=== PATIENT | male | born 1935 | race Caucasian/White ===

== ENCOUNTER 2020-05-18 17:26 | Emergency (ER) | payer OTHER, MEDICAID, SELFPAY ==
[~2020-05-18] VITALS: Ht 170.2 cm; Wt 72.6 kg
[2020-05-18 17:26] VITALS: BP_SYST 158
[2020-05-18 18:41] LABS: BASOPHILS % (AUTO) 0.6 % (0.0-2.0); EOSINOPHILS # (AUTO) 0.2 K/uL (0.0-0.4); EOSINOPHILS % (AUTO) 3.7 % (0.0-4.0); HEMATOCRIT 36.5 % (36-54); HEMOGLOBIN 11.6 g/dL (14.0-18.0); LYMPHOCYTES # (AUTO) 1.2 K/uL (1.0-5.5); LYMPHOCYTES % (AUTO) 24.5 % (20.5-51.5); MEAN CORPUSCULAR HEMOGLOBIN 27 pg (27-31); MEAN CORPUSCULAR HGB CONC 32 % (32-36); MEAN CORPUSCULAR VOLUME 84 fL (79.0-98.0); MONOCYTES # (AUTO) 0.6 K/uL (0.0-1.0); NEUTROPHILS # (AUTO) 2.9 K/uL (1.8-7.7); NEUTROPHILS % (AUTO) 58.2 % (40.0-70.0); PLATELET COUNT (AUTO) 120 K/uL (130-430); RED BLOOD CELL COUNT(AUTO) 4.33 MIL/uL (4.2-6.2); WHITE BLOOD COUNT (AUTO) 4.9 K/uL (4.8-10.8)
[2020-05-18 18:52] LABS: ANION GAP 4 (5-15); CALCIUM 8.8 mg/dL (8.4-11.0); CHLORIDE 100 mmol/L (98-107); CREATININE 1.35 mg/dL (0.55-1.30); GLUCOSE 160 mg/dL (70-99); POTASSIUM 4.4 mmol/L (3.5-5.1); SODIUM SERUM 137 mmol/L (136-145); UREA NITROGEN, BLOOD 28 mg/dL (8-21)
[2020-05-18 19:10] LABS: ALANINE AMINOTRANSFERASE 38 U/L (12-78); ALBUMIN 3.3 g/dL (3.4-4.8); ASPARTATE AMINOTRANSFERASE 34 U/L (10-37); TOTAL BILIRUBIN 0.5 mg/dL (0.0-1.0)
[2020-05-18 19:18] LABS: ALCOHOL, BLOOD < 3 mg/dL (<10)
[2020-05-18 19:33] LABS: BILIRUBIN,URINE NEGATIVE (NEGATIVE); BLOOD, URINE NEGATIVE (NEGATIVE); CLARITY/URINE CLEAR (CLEAR); COLOR,URINE YELLOW (YELLOW); GLUCOSE,URINE NEGATIVE (NEGATIVE); KETONES,URINE NEGATIVE (NEGATIVE); LEUKOCYTE ESTERASE ,URINE NEGATIVE (NEGATIVE); NITRITE, URINE NEGATIVE (NEGATIVE); PROTEIN URINE NEGATIVE (NEGATIVE)
[2020-05-18 20:05] LABS: ACETAMINOPHEN < 1 ug/mL (1-30); CHOLESTEROL 101 mg/dL (<200); HDL CHOLESTEROL 29 mg/dL (>45); LDL CHOLESTEROL 66 mg/dL (<100); TRIGLYCERIDES 61 mg/dL (30-150)
[2020-05-18 20:14] LABS: BARBITURATE, URINE NEGATIVE (NEG <=200); BENZODIAZEPINE, URINE POSITIVE (NEG <=150); CANNABINOID, URINE NEGATIVE (NEG <=50); COCAINE, URINE NEGATIVE (NEG <=150); METHAMPHETAMINES SCREEN,URINE NEGATIVE (NEG <=500); OPIATE, URINE NEGATIVE (NEG <=100); PHENCYCLIDINE SCREEN,URINE NEGATIVE (NEG <=25); URINE AMPHETAMINE NEGATIVE (NEG <=500); URINE METHADONE NEGATIVE (NEG <=200); URINE OXYCODONE SCREEN NEGATIVE (NEG <=100); URINE PROPOXYPHENE SCREEN NEGATIVE (NEG <=300)
[2020-05-18 20:15] LABS: UR TRICYCLIC ANTIDEPRESSANTS POSITIVE (NEG <=300)
[2020-05-18 20:45] VITALS: BP_SYST 136
== END 2020-05-18 20:45 ==
LOC: SED 17:26
DX: R45.6 Violent behavior (principal); Z88.8 Allergy status to other drugs, medicaments and biological substances; Z20.828 Contact with and (suspected) exposure to other viral communicable diseases
CPT/HCPCS: 36415; 80053; 80061; 80307; 81000; 81003; 83036; 85025; 87081; 87426; 99285; G0480; G0481; G0482

== ENCOUNTER 2020-06-01 10:28 | Inpatient (IN) | payer OTHER, MEDICAID, SELFPAY ==
[~2020-06-01] VITALS: Ht 162.6 cm; Wt 65.8 kg
--- NOTE | 2020-06-01 10:30 | NUR ---
Patient to ER bed 5 to gown for evaluation. Side rails up. Report given to SUSAN COLLINS.
[2020-06-01 10:31] VITALS: BP_SYST 101
--- NOTE | 2020-06-01 10:31 | NUR ---
Patient brought in by BLS in the ED c/o generalized weakness and decreased PO intake. Denied any chest pain or shortness of breath. Denied any fevers, chills, nausea or vomiting. Patient is awake and oriented x1 and respirations even and unlabored. VSS, pain level 0/10. Informed of the approximate wait time. Instructed to notify ED staff for any changes in condition or worsening of symptoms while waiting to be seen by an ED provider.
--- NOTE | 2020-06-01 10:33 | NUR ---
ER Dr. Coleman at bedside examining patient.
[2020-06-01] MEDS ORDERED: NACL 0.9% 1,000 ML IV ONE (10:45)
--- NOTE | 2020-06-01 10:55 | NUR ---
# 18 gauge angiocath placed to RAC. Use of asceptic technique. Opsite placed over site. Blood return noted. Blood for lab drawn from site. Flushed with 10 cc of normal saline. No evidence of infiltration noted. Patient tolerated well.
--- NOTE | 2020-06-01 11:01 | NUR ---
EKG GIVEN TO
[2020-06-01 11:10] LABS: BASOPHILS % (AUTO) 0.2 % (0.0-2.0); EOSINOPHILS % (AUTO) 0.2 % (0.0-4.0); HEMATOCRIT 45.2 % (36-54); HEMOGLOBIN 14.8 g/dL (14.0-18.0); LYMPHOCYTES # (AUTO) 1.1 K/uL (1.0-5.5); LYMPHOCYTES % (AUTO) 15.5 % (20.5-51.5); MEAN CORPUSCULAR HEMOGLOBIN 28 pg (27-31); MEAN CORPUSCULAR HGB CONC 33 % (32-36); MEAN CORPUSCULAR VOLUME 85 fL (79.0-98.0); MONOCYTES # (AUTO) 0.9 K/uL (0.0-1.0); MONOCYTES % (AUTO) 13.3 % (1.7-9.3); NEUTROPHILS % (AUTO) 70.8 % (40.0-70.0); PLATELET COUNT (AUTO) 118 K/uL (130-430); RED BLOOD CELL COUNT(AUTO) 5.31 MIL/uL (4.2-6.2); RED CELL DISTRIBUTION WIDTH 20.2 % (9.0-15.0); WHITE BLOOD COUNT (AUTO) 7.1 K/uL (4.8-10.8)
[2020-06-01 11:23] LABS: ANION GAP 4 (5-15); CALCIUM 9.2 mg/dL (8.4-11.0); CHLORIDE 103 mmol/L (98-107); CREATININE 1.27 mg/dL (0.55-1.30); GLUCOSE 189 mg/dL (70-99); POTASSIUM 4.3 mmol/L (3.5-5.1); SODIUM SERUM 143 mmol/L (136-145); UREA NITROGEN, BLOOD 31 mg/dL (8-21)
[2020-06-01 11:27] LABS: BILIRUBIN,URINE 1+ (NEGATIVE); BLOOD, URINE 1+ (NEGATIVE); CLARITY/URINE CLEAR (CLEAR); COLOR,URINE YELLOW (YELLOW); GLUCOSE,URINE NEGATIVE (NEGATIVE); KETONES,URINE 1+ (NEGATIVE); LEUKOCYTE ESTERASE ,URINE NEGATIVE (NEGATIVE); NITRITE, URINE NEGATIVE (NEGATIVE); PROTEIN URINE TRACE (NEGATIVE)
[2020-06-01] MEDS ORDERED: MULT-1117 PO (11:31)
[2020-06-01] MEDS ORDERED: DIVA250T PO (11:31)
[2020-06-01] MEDS ORDERED: SSREG SUBCUT (11:31)
[2020-06-01] MEDS ORDERED: FURO-150 PO (11:31)
[2020-06-01] MEDS ORDERED: LIP40 PO (11:31)
[2020-06-01] MEDS ORDERED: METO25TA3 PO (11:31)
[2020-06-01] MEDS ORDERED: INSU100V9 SQ (11:31)
[2020-06-01] MEDS ORDERED: QUET200T PO (11:31)
[2020-06-01] MEDS ORDERED: ASA81 PO (11:31)
[2020-06-01] MEDS ORDERED: MIRT15TA7 PO (11:31)
[2020-06-01] MEDS ORDERED: TAMS-11 PO (11:31)
[2020-06-01] MEDS ORDERED: ZOLP5TAB2 PO (11:31)
[2020-06-01] MEDS ORDERED: QUET300T2 PO (11:31)
[2020-06-01] MEDS ORDERED: GLUC1VIA4 IM (11:31)
[2020-06-01] MEDS ORDERED: CLOP75TA32 PO (11:31)
[2020-06-01 11:39] LABS: VALPROIC ACID 27 ug/mL (50-100)
[2020-06-01 12:00] LABS: BACTERIA,URINE RARE /HPF (None Seen); MUCUS,URINE 1+ /LPF (None Seen); WBC,URINE 0-3 /HPF (0-3)
--- NOTE | 2020-06-01 12:46 | NUR ---
Admitting orders received from Dr. Chirinos. Spoke with Corinne for bed assignment. Will call back.
--- NOTE | 2020-06-01 14:16 | NUR ---
Patient will be admitted to care of Dr. Chirinos. Admitted to Telemetry unit. Will go to room 121C. Belongings list completed. Complete and up to date summary report printed. SBAR report to be given at bedside with opportunity for questions.
--- NOTE | 2020-06-01 14:45 | NUR ---
ADMISSION NOTE: Received patient from ER via gurney. Patient admitted with diagnosis of Dehydration and Covid positive. Patient is awake, alert, oriented X 1. Patient oriented to hospital room, call light, toileting, pain management and safety-teach back done. Patient informed that Luda will be his nurse and that their room number is 121C. Personal belongings checked and Belongings List documented. Call light within reach.
[2020-06-01 15:30] VITALS: BP_SYST 124
[2020-06-01] MEDS ORDERED: DEXTROSE 50% JECT 50 ML DISP.SYRIN IVP PRN (17:45)
--- NOTE | 2020-06-01 18:08 | NUR ---
CONSULTATION: REASON FOR CONSULT: COVID CONSULTING PHYSICIAN: EDUAR NEAL MD ORDERED BY: DONNELL SPOKE WITH SHAWANDA FROM EXCHANGE [phone]
--- NOTE | 2020-06-01 19:00 | NUR ---
admission/ closing notes rec patient awake but very confused. ivl on the r ac intact. no infiltration noted. resp easy and unlabored. no sob noted. bed to the lowest position and side rails up and locked. patient also close to the nurses station and bed alarm is on and camera monitor is on. patient took out ivl and monitor on the floor. dr barclay was called and got order for restraints and o2 since saturation was 89%. pcr test was also collected and sent to lab. pics also were taken for wounds and scabs. endorsed to night nurse for iv to be inserted.
--- NOTE | 2020-06-01 19:30 | NUR ---
Opening notes Received report. Patient is resting in bed, no signs of distress noted. Breathing even and unlabored on 2 L NC. Patient without IV, will insert IV. Bilateral wrist restraints in place, no signs of injury noted. Call light with the patient. Safety precautions in place.
[2020-06-01 20:00] VITALS: BP_SYST 139
[2020-06-01] MEDS: D5NS 1,000 ML IV SCH (20:34)
[2020-06-01] MEDS: MIRTAZAPINE 15 MG TABLET PO SCH (20:34)
[2020-06-01] MEDS: QUEtiapine FUMARATE 100 MG TABLET PO SCH (20:34)
[2020-06-01] MEDS: ATORVASTATIN 20 MG TABLET PO SCH (20:34)
[2020-06-01] MEDS: DIVALPROEX SODIUM 250 MG TAB.SR.24H (DEPAKOTE ER) PO SCH (20:34)
[2020-06-01] MEDS: METOPROLOL SUCCINATE 25 MG TAB.SR.24H (TOPROL XL) PO SCH (20:34)
--- NOTE | 2020-06-01 20:35 | NUR ---
Medications/IV inserted Medications given, crushed with applesauce. Patient able to swallow with ease. Educated the action and side effects of Toprol. Patient nodded yes. New IV inserted into right upper arm 20 gauge. With good blood return and flushes well. Patient started on IVF. Offered patient additional food, patient refused. Stated he ate alot today. Patient given water to drink. No other needs. Bilateral wrist restraints in place, no signs of injury noted. Call light with the patient. Safety precautions in place.
--- NOTE | 2020-06-01 22:43 | NUR ---
RN rounds Patient took off web knitter, despite being on restraints. Educated the patient the purpose of web knitter. Patient still tries to remove, along with IV. Bilateral wrist restraints in place, no signs of injury noted. Call light with the patient. Safety precautions in place.
--- NOTE | 2020-06-01 23:32 | NUR ---
Accucheck 190 insulin given per sliding scale. Patient tolerated well. Patient still combative at times, reoriented patient. Patient more calm. Bilateral wrist restraints in place, no signs of injury noted. IVF infusing well. call light with the patient. Safety precautions in place.
[2020-06-01] MEDS: INSULIN REGULAR, HUMAN 100 UNITS/ML, 10 ML VIAL (humuLIN R) SUBCUT PRN (23:35)
[2020-06-02 00:06] VITALS: BP_SYST 124
--- NOTE | 2020-06-02 02:25 | NUR ---
RN rounds Patient is sleeping. No signs of distress noted. Breathing even and unlabored on 2 L NC. Patient talks in his sleep. IVF infusing well. Bilateral wrist restraints in place, no signs of injury. Call light with the patient. Safety precautions in place.
--- NOTE | 2020-06-02 04:15 | NUR ---
RN rounds Patient resting in bed, no signs of distress noted. Breathing even and unlabored. hygiene care provided. Patient combative at times. Able to reorient. Patient repositioned. Patient tolerated well. Bilateral wrist restraints replaced. No signs of injury noted. No other needs. Call light with the patient. Safety precautions in place.
[2020-06-02] MEDS: INSULIN REGULAR, HUMAN 100 UNITS/ML, 10 ML VIAL (humuLIN R) SUBCUT PRN ×3 (06:15→16:54)
--- NOTE | 2020-06-02 06:42 | NUR ---
Closing notes Patient is resting in bed, no signs of distress noted. Breathing even and unlabored on 2 L NC. IV patent and intact, infusing fluids. Hygiene care provided. Patient tolerated well. Bilateral wrist restraints in place as patient will try to remove lines and is a fall risk. No signs of injury noted from restraints. All needs met throughout the shift. call light with the patient. Safety precautions in place. will endorse care to day shift RN.
[2020-06-02 08:05] VITALS: BP_SYST 131
--- NOTE | 2020-06-02 08:10 | NUR ---
AM ROUNDS: PATIENT AWAKE AND CONFUSE. BILATERAL SOFT WRIST RESTRAINT ON.CONTACT ,AIRBORNE AND DROPLET PRECAUTION RENDERED.IV FLUIDS RUNNING WELL AT RIGHT UPPER ARM.BED LOCKED AT LOWEST POSITION. BED ALARM ON. CONDITION GUARDED.
--- NOTE | 2020-06-02 08:18 | NUR ---
Nutrition Update Hiram scale 15 noted. Pt admitted for Covid positive/dehydration Diet: [facility] Diet BMI: 24.9 kg/m2 RD to follow per nutrition care standards.
[2020-06-02] MEDS: FUROSEMIDE 20 MG TABLET PO SCH (09:00)
[2020-06-02] MEDS: DIVALPROEX SODIUM 250 MG TAB.SR.24H (DEPAKOTE ER) PO SCH ×2 (09:00→21:00)
[2020-06-02] MEDS: CLOPIDOGREL BISULFATE 75 MG TABLET PO SCH (09:00)
[2020-06-02] MEDS: QUEtiapine FUMARATE 100 MG TABLET PO SCH ×2 (09:00→21:00)
[2020-06-02] MEDS: MULTIVITAMINS TAB 1 TABLET PO SCH (09:00)
[2020-06-02] MEDS: ASPIRIN 81 MG TAB.CHEW PO SCH (09:00)
[2020-06-02] MEDS: TAMSULOSIN HCL 0.4 MG CAP PO SCH (09:00)
[2020-06-02] MEDS: METOPROLOL SUCCINATE 25 MG TAB.SR.24H (TOPROL XL) PO SCH ×2 (09:00→21:00)
[2020-06-02 09:30] LABS: ANION GAP 6 (5-15); CALCIUM 8.4 mg/dL (8.4-11.0); CHLORIDE 109 mmol/L (98-107); CREATININE 0.94 mg/dL (0.55-1.30); GLUCOSE 181 mg/dL (70-99); SODIUM SERUM 148 mmol/L (136-145); UREA NITROGEN, BLOOD 21 mg/dL (8-21)
--- NOTE | 2020-06-02 09:40 | NUR ---
REFUSE MEDS: CRUSHED MEDS GIVEN BUT PATIENT REFUSE.EDUCATION GIVEN BUT NOT UNDERSTANDING DUE TO DEMENTIA.
--- NOTE | 2020-06-02 09:42 | NUR ---
Dr Elissa Cortes Here rounding the patient. Per MD patient is clear per ID standpoint.
[2020-06-02 09:43] LABS: ALANINE AMINOTRANSFERASE 26 U/L (12-78); ALBUMIN 2.5 g/dL (3.4-4.8); ASPARTATE AMINOTRANSFERASE 30 U/L (10-37); THYROID STIMULATING HORMONE 0.85 uIu/mL (0.36-3.74); TOTAL BILIRUBIN 0.8 mg/dL (0.0-1.0)
[2020-06-02] MEDS: cefTRIAXone 1 GM in D5W 50 ML IV SCH (11:08)
[2020-06-02] MEDS: AZITHROMYCIN 500 MG in NS 250 ML IV SCH (11:09)
--- NOTE | 2020-06-02 11:10 | NUR ---
BLOOD SUGAR: BLOOD SUGAR TAKEN,WITH INSULIN COVERAGE GIVEN PER SLIDING SCALE.
[2020-06-02] MEDS: D5NS 1,000 ML IV SCH (11:29)
--- NOTE | 2020-06-02 12:30 | NUR ---
Called Md: Spoke with Dr. Chirinos and informed him patient unsettled ,not cooperating,needs to be sedated during ct scan.With orders give Haldol 2mg ivp during the CT scan.
[2020-06-02 12:50] VITALS: BP_SYST 128
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
[2020-06-02] MEDS ORDERED: HALOPERIDOL LACTATE 5 MG/ML VIAL IVP ONE (14:45)
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
[2020-06-02 16:20] VITALS: BP_SYST 118
--- NOTE | 2020-06-02 17:30 | NUR ---
Blood Sugar: Blood sugar taken,with insulin given per sliding scale. No problem.
--- NOTE | 2020-06-02 18:28 | NUR ---
End of Shift: Offered dinner to patient and gave spoonful of mash potatoes but pt spit it out and refuse to eat the rest. Bed locked at lowest position. Bed alarm on.Safety measures rendered. Continue to monitor.Stable this time.
[2020-06-02] MEDS: MIRTAZAPINE 15 MG TABLET PO SCH (21:00)
[2020-06-02] MEDS: ATORVASTATIN 20 MG TABLET PO SCH (21:00)
[2020-06-03] MEDS: D5NS 1,000 ML IV SCH ×2 (03:05→20:45)
[2020-06-03] MEDS: INSULIN REGULAR, HUMAN 100 UNITS/ML, 10 ML VIAL (humuLIN R) SUBCUT PRN ×3 (06:52→17:35)
--- NOTE | 2020-06-03 08:00 | NUR ---
AM ROUNDS: UPDATES GIVEN BY NIGHT NURSE SÁNCHEZ.PATIENT SLEEPING DURING ROUNDS. SOFT WRIST RESTRAINT ON BOTH HANDS.IV FLUIDS RUNNING AT RIGHT UPPER ARM INTACT. BED LOCKED AT LOWEST POSITION. BED ALARM ON. STABLE.
[2020-06-03 08:34] VITALS: BP_SYST 139
[2020-06-03] MEDS: FUROSEMIDE 20 MG TABLET PO SCH ×2 (09:00→10:25)
[2020-06-03] MEDS: ASPIRIN 81 MG TAB.CHEW PO SCH (09:00)
[2020-06-03] MEDS: QUEtiapine FUMARATE 100 MG TABLET PO SCH ×3 (09:00→20:45)
[2020-06-03] MEDS: CLOPIDOGREL BISULFATE 75 MG TABLET PO SCH (09:00)
[2020-06-03] MEDS: DIVALPROEX SODIUM 250 MG TAB.SR.24H (DEPAKOTE ER) PO SCH ×3 (09:00→20:45)
[2020-06-03] MEDS: MULTIVITAMINS TAB 1 TABLET PO SCH (09:00)
[2020-06-03] MEDS: TAMSULOSIN HCL 0.4 MG CAP PO SCH (09:00)
--- NOTE | 2020-06-03 09:30 | NUR ---
MEDS CRUSHED: TOOK SOME OF CRUSHED MEDS AND THE REST REFUSED. TOOK SOME SIPS OF WATER AND APPLE SAUCE.NO PROBLEM.
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
--- NOTE | 2020-06-03 10:10 | NUR ---
DAUGHTER CALLED: UPDATES GIVEN TO PT'S DAUGHTER DIANE AND INFORM TO CALL HER FOR SOME UPDATES.
[2020-06-03] MEDS: AZITHROMYCIN 500 MG in NS 250 ML IV SCH (10:24)
[2020-06-03] MEDS: cefTRIAXone 1 GM in D5W 50 ML IV SCH (10:24)
[2020-06-03] MEDS: METOPROLOL SUCCINATE 25 MG TAB.SR.24H (TOPROL XL) PO SCH ×2 (10:24→20:45)
[2020-06-03 11:06] VITALS: BP_SYST 136
--- NOTE | 2020-06-03 12:00 | NUR ---
BLOOD SUGAR: BLOOD SUGAR TAKEN,WITH INSULIN COVERAGE GIVEN PER SLIDING SCALE. NO PROBLEM.
--- NOTE | 2020-06-03 14:30 | NUR ---
SPOKE WITH MD: INFORM DR JACOOB THAT PT'S DAUGHTER DIANE WANTS SOME UPDATES.
[2020-06-03 16:00] VITALS: BP_SYST 143
--- NOTE | 2020-06-03 17:13 | NUR ---
Dietitian Recommendations * Recommend [facility] diet w/ Gluceduardo TID (ONS provides an additional 660 kcal/day, 30 gm protein/day) MARIANA BADILLO Please refer to Nutrition Assessment for details. Addendum: 06/03/20 at [address] Amended: Links added.
--- NOTE | 2020-06-03 17:35 | NUR ---
BLOOD SUGAR: BLOOD SUGAR TAKEN,WITH INSULIN GIVEN PER SLIDING SCALE. WITH NO PROBLEM.
--- NOTE | 2020-06-03 18:30 | NUR ---
CLOSING NOTES: PATIENT RESTING. BUT PT WAKES UP WHEN DOING ROUNDS. BED LOCKED AT LOWEST POSITION. BED ALARM ON. SOFT WRIST RESTRAINT ON BOTH HANDS. NOT IN ANY DISTRESS.
--- NOTE | 2020-06-03 18:30 | NUR ---
CLOSING NOTES: PATIENT ON PRONE POSITION. CALL LIGHT WITH IN REACH. BED LOCKED AT LOWEST POSITION. NO ACUTE DISTRESS. Addendum: 06/03/20 at 1953 by Britney Downs RN NOT INTENDED FOR ABOVE PATIENT.ERROR NOTES.
--- NOTE | 2020-06-03 19:30 | NUR ---
Initial note: Recieved report from dayshift RN. Patient is in bed, watching TV. Even, nonlabored breathing on room air. IV site is patent and intact. Bilateral soft wrist restraints in place. Skin and circulation are within normal limits. Bed is locked at lowest position. Bed alarm is on. Side rails up. Call light is with patient. Covid, safety, and fall precautions in place. Will continue with plan of care.
[2020-06-03 20:00] VITALS: BP_SYST 132
[2020-06-03] MEDS: MIRTAZAPINE 15 MG TABLET PO SCH (20:45)
[2020-06-03] MEDS: ATORVASTATIN 20 MG TABLET PO SCH (21:00)
--- NOTE | 2020-06-03 21:45 | NUR ---
Rounds: Patient is in bed, resting. No acute distress. Breathing is even, nonlabored on room air. Call light is with patient. Covid, safety, and fall precautions in place. Will continue monitoring.
[2020-06-04] VITALS: BP_SYST 117
--- NOTE | 2020-06-04 00:15 | NUR ---
Rounds: Patient is sleeping in bed. No s/s of acute distress. Respirations are even and unlabored on room air. Call light is with patient. Covid, safety, and fall precautions in place. Will continue monitoring.
[2020-06-04] MEDS: INSULIN REGULAR, HUMAN 100 UNITS/ML, 10 ML VIAL (humuLIN R) SUBCUT PRN ×4 (00:22→18:35)
--- NOTE | 2020-06-04 02:30 | NUR ---
Rounds: Patient is sleeping in bed. No s/s of acute distress. Respirations are even and unlabored. Call light is with patient. Covid, safety, and fall precautions in place. Will continue monitoring.
--- NOTE | 2020-06-04 04:40 | NUR ---
Rounds: Patient is sleeping in bed. No s/s acute distress. Breathing is even and nonlabored on room air. Call light is with patient. Covid, safety and fall precautions in place. Will continue monitoring.
--- NOTE | 2020-06-04 06:39 | NUR ---
Closing notes: Patient is in bed, resting. Even, nonlabored breathing on room air. IV site is patent and intact. Bilateral soft wrist restraints in place. Skin and circulation are within normal limits. All needs met. Bed is locked at lowest position. Bed alarm is on. Side rails up. Call light is with patient. Covid, safety, and fall precautions in place. Will endorse care to dayshift RN.
[2020-06-04 08:50] VITALS: BP_SYST 137
--- NOTE | 2020-06-04 08:50 | NUR ---
INITIAL ROUNDS Received pt awake, restless, pulling away from this nurse and shouting during physical assessment. Pt swung arm at this nurse when released from restraints. Pt on Airborne and Droplet precautions for Covid 19+. HOB elevated for aspiration precautions. Side rails up x4, bed alarm on, room across from nursing station for safety.
[2020-06-04] MEDS: METOPROLOL SUCCINATE 25 MG TAB.SR.24H (TOPROL XL) PO SCH ×2 (10:40→20:35)
[2020-06-04] MEDS: cefTRIAXone 1 GM in D5W 50 ML IV SCH (10:42)
[2020-06-04] MEDS: AZITHROMYCIN 500 MG in NS 250 ML IV SCH (10:42)
[2020-06-04] MEDS: DIVALPROEX SODIUM 250 MG TAB.SR.24H (DEPAKOTE ER) PO SCH ×2 (10:43→21:00)
[2020-06-04] MEDS: ASPIRIN 81 MG TAB.CHEW PO SCH (10:43)
[2020-06-04] MEDS: MULTIVITAMINS TAB 1 TABLET PO SCH (10:43)
[2020-06-04] MEDS: QUEtiapine FUMARATE 100 MG TABLET PO SCH ×2 (10:44→20:35)
[2020-06-04] MEDS: FUROSEMIDE 20 MG TABLET PO SCH (10:44)
[2020-06-04] MEDS: CLOPIDOGREL BISULFATE 75 MG TABLET PO SCH (10:44)
[2020-06-04] MEDS: TAMSULOSIN HCL 0.4 MG CAP PO SCH (10:45)
--- NOTE | 2020-06-04 12:24 | NUR ---
CONSULTATION PAGED/CALLED Reason for Consultation: [] COVID Person Who was Notified: [] PAGED APARNA ROBERTSON BOATHOUSE KEEPER DIRECTLY (DR REZA) Consulting Physician: [] DR REZA Pocket Operator Specialty: [] APARNA Ordering Physician: [] DR JACOBO
--- NOTE | 2020-06-04 13:05 | NUR ---
ROUNDS Pt resting quietly in bed with no s/s resp distress, no s/s pain or discomfort. Pt voided, cleaned up and fresh linens and clean gown placed. Pt remains restless-pulling away and shouting at nurses when cleaned. Pt refused to eat any lunch-would not open his mouth. All precautions remain in place.
[2020-06-04 16:15] VITALS: BP_SYST 132
--- NOTE | 2020-06-04 16:15 | NUR ---
ROUNDS Pt resting quietly in bed with no s/s resp distress, no s/s pain or discomfort. Pt voided, pt cleaned up and fresh gown and chux placed. Pt seen by Dr. Cortes. Pt remains restless. All precautions remain in place.
--- NOTE | 2020-06-04 19:00 | NUR ---
CLOSING NOTE/SKIN CARE Pt ate only small amount of dinner, drinking water-whole 8 oz cup. Pt remains restless, pushes against nurse when doing hygiene care. Pt voided, new gown and fresh chux placed on pt. Dressings changed. to forearms. *Anterior right forearm had 4 skin tears, the most distal skin tear was 100% pink tissue, minimal drainage, no odor. The 2nd most distal skin tear also 100% pink tissue with minimal drainage, no odor. The 3rd skin tear more proximal to 2nd is 100% pink tissue, no drainage, no odor. The 4th skin tear is closest to the elbow, larger with 100% pink tissue, minimal drainage, no odor. All were cleansed with normal saline, hydrogel placed onto wound bed, covered with oil emulsion dressing, covered with gauze and secured in place with kathleen wrap. Anterior LFA skin tear 100% pink tissue, minimal drainage, no odor. Area cleansed with normal saline, hydrogel placed to wound bed covered with oil emulsion dressing and secured in place with kathleen wrap. Pt tolerated well, All precautions maintained throughout shift.
--- NOTE | 2020-06-04 19:30 | NUR ---
Initial note: Recieved report from andreas RN. Patient is in bed, resting Even, nonlabored breathing on room air. IV site is patent and intact. Bilateral soft wrist restraints in place. Skin and circulation are within normal limits. Bed is locked at lowest position. Bed alarm is on. Side rails up. Call light is with patient. Covid, safety, and fall precautions in place. Will continue with plan of care.
[2020-06-04 20:00] VITALS: BP_SYST 140
[2020-06-04] MEDS: MIRTAZAPINE 15 MG TABLET PO SCH (20:35)
[2020-06-04] MEDS: ATORVASTATIN 20 MG TABLET PO SCH (21:00)
--- NOTE | 2020-06-04 21:45 | NUR ---
Rounds: Patient is resting in bed. No s/s of acute distress. Respirations are even and unlabored. Call light is with patient. Covid, safety, and fall precautions in place. Will continue monitoring.
[2020-06-05] VITALS: BP_SYST 124
--- NOTE | 2020-06-05 00:05 | NUR ---
Rounds: Patient in bed, resting. No signs of acute distress. Breathing is even and nonlabored. Call light is with patient. Covid, safety, and fall precautions in place. Will continue to monitor.
[2020-06-05] MEDS: INSULIN REGULAR, HUMAN 100 UNITS/ML, 10 ML VIAL (humuLIN R) SUBCUT PRN ×4 (00:08→18:04)
--- NOTE | 2020-06-05 02:48 | NUR ---
Rounds: Patient is sleeping in bed. Showing no signs of acute distress. Even and nonlabored respirations on room air. Call light is with patient. Covid, safety, and fall precautions in place. Will continue monitoring.
[2020-06-05] MEDS: D5NS 1,000 ML IV SCH ×2 (05:05→10:07)
--- NOTE | 2020-06-05 05:05 | NUR ---
Rounds: Patient in bed, sleeping. No signs of acute distress. Breathing is even and nonlabored. Call light is with patient. Covid, safety, and fall precautions in place. Will continue to monitor.
[2020-06-05 06:35] LABS: BASOPHILS % (AUTO) 0.1 % (0.0-2.0); EOSINOPHILS # (AUTO) 0.1 K/uL (0.0-0.4); EOSINOPHILS % (AUTO) 1.9 % (0.0-4.0); HEMATOCRIT 43.3 % (36-54); HEMOGLOBIN 13.9 g/dL (14.0-18.0); LYMPHOCYTES # (AUTO) 1.1 K/uL (1.0-5.5); LYMPHOCYTES % (AUTO) 23.6 % (20.5-51.5); MEAN CORPUSCULAR HEMOGLOBIN 27 pg (27-31); MEAN CORPUSCULAR HGB CONC 32 % (32-36); MEAN CORPUSCULAR VOLUME 85 fL (79.0-98.0); MONOCYTES # (AUTO) 0.5 K/uL (0.0-1.0); MONOCYTES % (AUTO) 10.2 % (1.7-9.3); NEUTROPHILS # (AUTO) 2.9 K/uL (1.8-7.7); NEUTROPHILS % (AUTO) 64.2 % (40.0-70.0); PLATELET COUNT (AUTO) 128 K/uL (130-430); RED BLOOD CELL COUNT(AUTO) 5.08 MIL/uL (4.2-6.2); RED CELL DISTRIBUTION WIDTH 19.6 % (9.0-15.0); WHITE BLOOD COUNT (AUTO) 4.6 K/uL (4.8-10.8)
[2020-06-05 07:05] LABS: ALANINE AMINOTRANSFERASE 23 U/L (12-78); ALBUMIN 2.1 g/dL (3.4-4.8); ANION GAP 8 (5-15); ASPARTATE AMINOTRANSFERASE 34 U/L (10-37); CALCIUM 8.4 mg/dL (8.4-11.0); CHLORIDE 109 mmol/L (98-107); CREATININE 0.76 mg/dL (0.55-1.30); GLUCOSE 159 mg/dL (70-99); POTASSIUM 3.4 mmol/L (3.5-5.1); SODIUM SERUM 145 mmol/L (136-145); TOTAL BILIRUBIN 0.5 mg/dL (0.0-1.0); UREA NITROGEN, BLOOD 12 mg/dL (8-21)
--- NOTE | 2020-06-05 07:15 | NUR ---
Closing notes: Endorsed care to dayshift RN. Patient is in bed, resting. Even, nonlabored breathing on room air. IV site is patent and intact. Bilateral soft wrist restraints in place. Skin and circulation are within normal limits. All needs met. Bed is locked at lowest position. Bed alarm is on. Side rails up. Call light is with patient. Covid, safety, and fall precautions in place.
[2020-06-05] MEDS: CLOPIDOGREL BISULFATE 75 MG TABLET PO SCH (09:00)
[2020-06-05] MEDS: QUEtiapine FUMARATE 100 MG TABLET PO SCH ×2 (09:00→20:32)
[2020-06-05] MEDS: MULTIVITAMINS TAB 1 TABLET PO SCH (09:00)
[2020-06-05] MEDS: FUROSEMIDE 20 MG TABLET PO SCH (09:00)
[2020-06-05] MEDS: METOPROLOL SUCCINATE 25 MG TAB.SR.24H (TOPROL XL) PO SCH ×2 (09:00→20:32)
[2020-06-05] MEDS: ASPIRIN 81 MG TAB.CHEW PO SCH (09:00)
[2020-06-05] MEDS: TAMSULOSIN HCL 0.4 MG CAP PO SCH (09:00)
[2020-06-05] MEDS: DIVALPROEX SODIUM 250 MG TAB.SR.24H (DEPAKOTE ER) PO SCH ×2 (09:00→20:32)
[2020-06-05 09:50] VITALS: BP_SYST 125
[2020-06-05] MEDS: cefTRIAXone 1 GM in D5W 50 ML IV SCH (10:06)
[2020-06-05] MEDS: AZITHROMYCIN 500 MG in NS 250 ML IV SCH (10:07)
--- NOTE | 2020-06-05 10:14 | NUR ---
Pt refused to take p.o medications.
--- NOTE | 2020-06-05 11:04 | NUR ---
CONSULTATION PAGED/CALLED Reason for Consultation: PSYCHOSIS Person Who was Notified: MCHAIL Consulting Physician: UMAIR Standpipe Tender Specialty: PSYCH Ordering Physician: DONNELL
[2020-06-05 12:47] VITALS: BP_SYST 135
[2020-06-05 16:10] VITALS: BP_SYST 149
[2020-06-05 20:00] VITALS: BP_SYST 150
--- NOTE | 2020-06-05 20:15 | NUR ---
Opening notes Pt alert, awake, confused and restless, trying to get out of bed. VSS. Two RNs assisted pt up to move up in bed and secured dioni wrists restraints. Dioni arms dressing C/D/I. IVF infusing at ordered rate KAPIL dressing c/d/i. Pt oriented to place as needed. Dioni wrists restraints in place. Bed maintained low, locked, siderails up x4, alarm on. Droplet isolation maintained. To monitor.
--- NOTE | 2020-06-05 20:30 | NUR ---
Med pass Explained and encouraged pt to take his meds, pt able to take meds crushed w/ applesauce. Pt is restless. Safety maintained. Dioni wrist restraints on.
[2020-06-05] MEDS: ATORVASTATIN 20 MG TABLET PO SCH (20:32)
[2020-06-05] MEDS: MIRTAZAPINE 15 MG TABLET PO SCH (20:32)
[2020-06-06] VITALS: BP_SYST 136
--- NOTE | 2020-06-06 | NUR ---
Rounds Pt asleep, no s/s distress noted. VSS. BS checked 142. Dioni wrists restraints on. Bed low, locked, siderails up x4, alarm on. Droplet isolation maintained. To monitor.
[2020-06-06] MEDS: D5NS 1,000 ML IV SCH ×2 (00:04→22:00)
--- NOTE | 2020-06-06 04:30 | NUR ---
Rounds Pt asleep, no s/s distress noted. O2 sat 98% on room air. Dioni wrists restraints on. Bed low, locked, siderails up x4, alarm on. Droplet isolation maintained. To monitor.
--- NOTE | 2020-06-06 06:10 | NUR ---
Closing notes Pt asleep, easily awakens, no s/s distress noted. O2 sat 99% on room air. IVF infusing at ordered rate KAPIL 20G no s/s infiltration. R. arm foam dressings C/D/I. Pt incontinent of urine, pericare provided. Dioni wrists restraints on. Bed low, locked, siderails up x4, alarm on. Droplet isolation maintained. To endorse to AM nurse.
[2020-06-06] MEDS: INSULIN REGULAR, HUMAN 100 UNITS/ML, 10 ML VIAL (humuLIN R) SUBCUT PRN ×3 (06:26→18:11)
[2020-06-06 08:28] VITALS: BP_SYST 145
[2020-06-06] MEDS: TAMSULOSIN HCL 0.4 MG CAP PO SCH (09:00)
[2020-06-06] MEDS: METOPROLOL SUCCINATE 25 MG TAB.SR.24H (TOPROL XL) PO SCH ×2 (09:00→21:12)
[2020-06-06] MEDS: QUEtiapine FUMARATE 100 MG TABLET PO SCH ×2 (09:00→21:12)
[2020-06-06] MEDS: FUROSEMIDE 20 MG TABLET PO SCH (09:00)
[2020-06-06] MEDS: CLOPIDOGREL BISULFATE 75 MG TABLET PO SCH (09:00)
[2020-06-06] MEDS: DIVALPROEX SODIUM 250 MG TAB.SR.24H (DEPAKOTE ER) PO SCH ×2 (09:00→21:11)
[2020-06-06] MEDS: MULTIVITAMINS TAB 1 TABLET PO SCH (09:00)
[2020-06-06] MEDS: ASPIRIN 81 MG TAB.CHEW PO SCH (09:00)
[2020-06-06 09:09] VITALS: BP_SYST 144
[2020-06-06] MEDS: cefTRIAXone 1 GM in D5W 50 ML IV SCH (09:12)
--- NOTE | 2020-06-06 09:30 | NUR ---
PT REFUSED TO EAT AND TO TAKE PO MEDICATIONS.
[2020-06-06] MEDS: AZITHROMYCIN 500 MG in NS 250 ML IV SCH (09:51)
--- NOTE | 2020-06-06 12:34 | NUR ---
DR JACOBO WAS HERE AND MADE AWARE THAT PT HAS BEEN REFUSING HIS PO MEDICATIONS.
[2020-06-06 12:39] VITALS: BP_SYST 126
[2020-06-06 15:57] VITALS: BP_SYST 144
--- NOTE | 2020-06-06 18:12 | NUR ---
PT ASSISTED WITH DINNER, PT IS MORE ALERT THIS TIME. ATE ABOUT 4 SPOONFUL OF FOOD. DRANK ABOUT 250 OF WATER . PT CHANGED AND REPOSITIONED. PT HIITING THIS RN WHEN TURNING AND CHANGING GOWN.
--- NOTE | 2020-06-06 18:30 | NUR ---
CLOSING NOTES, PT HAS BEEN STABLE THE WHOLE SHIFT, PT WAS SLEEPY THIS MORNING UNTIL ABOUT 5PM, PT BECAME MORE AWAKE. NO FEVER, NO C/O OF PAIN. PT STILL HITTING WHEN BEING TURNED AND CLEANED. RESTRAINT CONTINUED. WILL ENDORSE TO NIGHT NURSE.
--- NOTE | 2020-06-06 19:30 | NUR ---
Opening notes/pericare Pt awake, confused, restless. Pt incontinent of urine. Pericare provided and linens changed. Dioni soft wrists restraints on. Dioni arms dressing C/D/I. IVF infusing at ordered rate KAPIL no s/s infiltration noted, dressing intact. Bed maintained low, locked, siderails up x4, alarm on. To monitor.
[2020-06-06 19:50] VITALS: BP_SYST 132
[2020-06-06] MEDS: ATORVASTATIN 20 MG TABLET PO SCH (21:12)
[2020-06-06] MEDS: MIRTAZAPINE 15 MG TABLET PO SCH (21:12)
--- NOTE | 2020-06-06 21:30 | NUR ---
Med pass Pt awake, restless. PO meds crushed and administered as scheduled. Aspiration precaution in place. IVF infusing at ordered rate KAPIL 20G clear and patent. Pt repositioned and cleaned. Dioni wrists restraints on. Safety maintained. To monitor.
[2020-06-07 00:15] VITALS: BP_SYST 141
--- NOTE | 2020-06-07 00:26 | NUR ---
Rounds/Blood sugar Pt asleep, no s/s distress noted. BS checked 201, 4 units regular insulin administered per protocol. Pericare provided as needed. Safety maintained. Covid isolation in place. To monitor.
[2020-06-07] MEDS: INSULIN REGULAR, HUMAN 100 UNITS/ML, 10 ML VIAL (humuLIN R) SUBCUT PRN ×3 (00:27→12:35)
--- NOTE | 2020-06-07 04:20 | NUR ---
Rounds Pt asleep, no s/s distress noted. IVF infusing at ordered rate KAPIL 20G no s/s infiltration. Pt repositioned. Dioni soft wrists restraints on. Safety maintained. Covid isolation in place. To monitor.
--- NOTE | 2020-06-07 06:20 | NUR ---
Closing notes Pt asleep, no s/s distress noted. BS checked 201 2 units Reg insulin given per protocol. IVF infusing at ordered rate KAPIL 20G no s/s infiltration. Pt repositioned. Dioni soft wrists restraints on. Safety maintained. Covid isolation in place. To endorse to AM nurse.
--- NOTE | 2020-06-07 07:27 | NUR ---
OPENING NOTE Patient resting in the bed. No acute distress. HOB elevated. Skin warm and dry to touch. IV intact to KAPIL, no redness, no swelling, no drainage. On D5 NS at 60ml/hr, infusing well. Bilateral soft restraint in place, pulse present. Able to move fingers and hands without difficulty. On isolation. Safety measure maintained. Call light within reached. Bed locked in low position, side rails up, bed alarm on. Will continue to monitor.
[2020-06-07 08:00] VITALS: BP_SYST 129
--- NOTE | 2020-06-07 09:20 | NUR ---
SEEN AND EXAMINED BY NICOLE CHUNG.
[2020-06-07] MEDS ORDERED: ENOXAPARIN SODIUM 30 MG/0.3 ML SYRINGE SUBCUT ONE (09:45)
[2020-06-07] MEDS: QUEtiapine FUMARATE 100 MG TABLET PO SCH ×2 (10:02→21:45)
[2020-06-07] MEDS: CLOPIDOGREL BISULFATE 75 MG TABLET PO SCH (10:02)
[2020-06-07] MEDS: FUROSEMIDE 20 MG TABLET PO SCH (10:02)
[2020-06-07] MEDS: MULTIVITAMINS TAB 1 TABLET PO SCH (10:02)
[2020-06-07] MEDS: TAMSULOSIN HCL 0.4 MG CAP PO SCH (10:02)
[2020-06-07] MEDS: ASPIRIN 81 MG TAB.CHEW PO SCH (10:02)
[2020-06-07] MEDS: DIVALPROEX SODIUM 250 MG TAB.SR.24H (DEPAKOTE ER) PO SCH (10:02)
[2020-06-07] MEDS: cefTRIAXone 1 GM in D5W 50 ML IV SCH (10:03)
[2020-06-07] MEDS: METOPROLOL SUCCINATE 25 MG TAB.SR.24H (TOPROL XL) PO SCH ×2 (10:03→21:45)
--- NOTE | 2020-06-07 10:22 | NUR ---
AM SCHEDULE MED GIVEN, TOLERATED WELL.
--- NOTE | 2020-06-07 10:50 | NUR ---
SEEN BY NUZHAT BOLANOS.
[2020-06-07 12:00] VITALS: BP_SYST 117
--- NOTE | 2020-06-07 12:33 | NUR ---
EN=184 Humulin R insulin 4 units given per sliding scale as ordered. Patient resting in the bed. No acute distress. IV intact. Bilateral soft restraint in placed, able to move fingers and hands without problem, pulse present. Safety measure maintained. Call light within reached. Bed locked in low position, side rails up, bed alarm on. Isolation maintained. Continue to monitor.
--- NOTE | 2020-06-07 15:00 | NUR ---
ROUND Patient resting in the bed. No acute distress. IV intact. Bilateral soft restraint in placed, able to move fingers and hands without problem, pulse present. Isolation maintained. Safety measure maintained. Call light within reached. Bed locked in low position, side rails up, bed alarm on. Continue to monitor.
[2020-06-07 15:49] VITALS: BP_SYST 139
--- NOTE | 2020-06-07 18:05 | NUR ---
DO=555 No insulin coverage needed per sliding scale. Patient resting in the bed. No acute distress. IV intact. Bilateral soft restraint in placed, able to move fingers and hands without problem, pulse present. Safety measure maintained. Call light within reached. Bed locked in low position, side rails up, bed alarm on. Isolation maintained. Continue to monitor.
--- NOTE | 2020-06-07 18:25 | NUR ---
CLOSING NOTE Patient resting in the bed. No acute distress. HOB elevated. Skin warm and dry to touch. IV intact to KAPIL, no redness, no swelling, patent. Bilateral soft restraint in place, pulse present. Able to move fingers and hands without difficulty. Released Q2hr. Continue on isolation. All needs met. Safety measure maintained. Call light within reached. Bed locked in low position, side rails up, bed alarm on. Will endorse to night nurse.
[2020-06-07 20:05] VITALS: BP_SYST 138
[2020-06-07] MEDS ORDERED: DIVALPROEX SODIUM 250 MG TAB.SR.24H (DEPAKOTE ER) PO SCH (21:00)
[2020-06-07] MEDS: MIRTAZAPINE 15 MG TABLET PO SCH (21:45)
[2020-06-07] MEDS: ATORVASTATIN 20 MG TABLET PO SCH (21:45)
[2020-06-08 00:05] VITALS: BP_SYST 126
[2020-06-08] MEDS: INSULIN REGULAR, HUMAN 100 UNITS/ML, 10 ML VIAL (humuLIN R) SUBCUT PRN ×2 (05:46→12:34)
[2020-06-08 08:15] VITALS: BP_SYST 123
--- NOTE | 2020-06-08 08:15 | NUR ---
PT REFUSED TO EAT AND TAKE AM MEDS, WILL TRY AGAIN LATER, VITALS AREWNL, NO FEVER. WILL CONT TO MONITOR.
--- NOTE | 2020-06-08 08:39 | NUR ---
Nutrition F/U Admitting Diagnosis COVID positive/dehydration Reviewed Pertinent Medical/Surgical Hx Medical Record Other Medical History Comment: PMH: psych disorder, HTN per physician notes SARS-CoV-2 (PCR) Positive 06/01 SARS-CoV-2 Ag Positive 06/01 Subjective Information Pt admitted for COVID positive and dehydration, remains under isolation and RD visit deferred at this time . RD called pt's daughter for info -- per daughter, however, unable to provide diet information and referred RD to call [place] [facility] . RD s/w MECHANICAL ENGINEERING ADVISOR at [facility], who stated cannot recall any information regarding pt's diet information, but did report pt's appetite as poor and pt does not have any chewing/swallowing difficulties. Pt remains confused and agitated per EMR. Continues to refuse meals and w/ negligible PO intake less than 25% since admission and is at risk of being malnourished. If poor PO intake persists, pt may benefit from alternative means of nutrition. Noted pt on Remeron per EMR. Current Diet Order/Nutrition Support CCHO x 4 days Pertinent Medications seroquel, lasix, SShumuLIn R, Lovenox, MVI, Remeron, Lipitor Pertinent Labs Na 145 (improved), BG 159 H (trending down), POC BG 149/155 H, ALP 105 H (trending down), ALB 2.1 L Skin Integrity Comment: Hiram scale: 14; per Probation And Parole Officer note 06/02: 1. Left Distal Posterior Forearm: Skin tear, present on admission. 2. Right Distal Posterior Forearm: Skin tear, present on admission. 3. Right dorsal Hand: Skin tear, present on admission. 4. Left Upper Extremity: Multiple areas of dark discolored ecchymosis, present on admission. 5. Right Forearm: Multiple dry scabs, present on admission. 6. Left barnes: Multiple dry scabs, present on admission. 7. Right barnes: Large dry scab, present on admission. 8. Left lateral hip: Large area of purple ecchymosis, present on admission. Current % PO Negligible, < 25% Estimated Energy Expenditure (kcals/day) 9361-3770 kcal/day (30-35 kcal/kg CBW for acute state) Estimated Protein Required (g/day) 79-99 gm/day (1.2-1.5 gm/kg CBW for acute state) Estimated Fluid Required (l/day) 2-2.3 L/day (1 ml/kcal/day for maintenance) Problem/Etiology/Signs/Symptoms Inadequate nutritional intakes related to metabolic demands as evidenced by inability to meet estimated nutritional requirements for acute state w/ current negligible PO intakes. *ongoing Expected Outcomes/Goals - Monitor appetite and PO intakes w/ goal of pt meeting at least 50% of estimated nutritional needs, labs trending WNL, normal GI function, and skin integrity/wt maintenance Dietitian Recommendations * Recommend continue CCHO diet w/ Glucerna TID (ONS provides an additional 660 kcal/day, 30 gm protein/day) * Encourage to increase PO intake during meal times. * If negligible PO intake persists, pt may benefit from alternative means of nutrition. Follow Up High Risk: F/U in 2-3days
--- NOTE | 2020-06-08 09:08 | NUR ---
Dietitian Recommendations * Recommend continue CCHO diet w/ Glucerna TID (ONS provides an additional 660 kcal/day, 30 gm protein/day) * Encourage to increase PO intake during meal times. * If negligible PO intake persists, pt may benefit from alternative means of nutrition. Please see Nutrition F/U for details. EP,RD
[2020-06-08] MEDS ORDERED: DIVA-72 PO (09:42)
[2020-06-08] MEDS: cefTRIAXone 1 GM in D5W 50 ML IV SCH (09:47)
[2020-06-08] MEDS: ENOXAPARIN SODIUM 30 MG/0.3 ML SYRINGE SUBCUT SCH (09:49)
[2020-06-08] MEDS: MULTIVITAMINS TAB 1 TABLET PO SCH (11:00)
[2020-06-08] MEDS: CLOPIDOGREL BISULFATE 75 MG TABLET PO SCH (11:00)
[2020-06-08] MEDS: METOPROLOL SUCCINATE 25 MG TAB.SR.24H (TOPROL XL) PO SCH ×2 (11:00→22:00)
[2020-06-08] MEDS: FUROSEMIDE 20 MG TABLET PO SCH (11:00)
[2020-06-08] MEDS: TAMSULOSIN HCL 0.4 MG CAP PO SCH (11:00)
[2020-06-08] MEDS: ASPIRIN 81 MG TAB.CHEW PO SCH (11:00)
[2020-06-08] MEDS: QUEtiapine FUMARATE 100 MG TABLET PO SCH ×3 (11:00→22:00)
[2020-06-08] MEDS: DIVALPROEX SODIUM 250 MG TABLET(DEPAKOTE) PO SCH ×3 (11:00→22:00)
[2020-06-08 11:09] VITALS: BP_SYST 106
[2020-06-08 17:00] VITALS: BP_SYST 125
--- NOTE | 2020-06-08 19:38 | NUR ---
closing notes, pt has been stable, no fever, no sob, no s/s of pain. wound care done, pt continued to be on bilat wrist restrain, pt hitting nurses, pt attempted to get our of bed. endorsed to night nurse.
[2020-06-08 20:05] VITALS: BP_SYST 122
[2020-06-08] MEDS: MIRTAZAPINE 15 MG TABLET PO SCH (22:00)
[2020-06-08] MEDS: ATORVASTATIN 20 MG TABLET PO SCH (22:00)
[2020-06-08 23:30] VITALS: BP_SYST 103
[2020-06-09 04:17] VITALS: BP_SYST 117
[2020-06-09 08:00] VITALS: BP_SYST 133
[2020-06-09] MEDS: QUEtiapine FUMARATE 100 MG TABLET PO SCH ×3 (08:00→21:14)
--- NOTE | 2020-06-09 08:20 | NUR ---
Opening Notes Patient is laying in bed, resting at this time with eyes closed. Alert and oriented x1. Pt is noted to be lethargic at this time. Pt remains on soft wrist bilateral restraints at this time, noted with dressings on bilateral forearms. Dressing clean and intact at this time. No agitation noted. Pt is unable to verbalize needs. No resp distress noted. Breathing is even and unlabored. IV site on right AC, 20 gauge intact at this time. Flushing well, saline lock. Pt refuses to eat at this time. Med were crushed and mixed with applesauce. All needs met at this time. Safety and fall precautions in place. Bed in lowest position, alarm on, locked. Will continue to monitor.
--- NOTE | 2020-06-09 10:00 | NUR ---
Notes Patient is sleeping in bed, no agitation noted. Breathing is even and unlabored. Pt remains on soft wrist bilateral restraints at this time. No injury noted. Will continue to monitor.
[2020-06-09] MEDS: FUROSEMIDE 20 MG TABLET PO SCH (10:21)
[2020-06-09] MEDS: DIVALPROEX SODIUM 250 MG TABLET(DEPAKOTE) PO SCH ×3 (10:21→21:14)
[2020-06-09] MEDS: CLOPIDOGREL BISULFATE 75 MG TABLET PO SCH (10:21)
[2020-06-09] MEDS: METOPROLOL SUCCINATE 25 MG TAB.SR.24H (TOPROL XL) PO SCH ×2 (10:21→21:14)
[2020-06-09] MEDS: TAMSULOSIN HCL 0.4 MG CAP PO SCH (10:21)
[2020-06-09] MEDS: MULTIVITAMINS TAB 1 TABLET PO SCH (10:21)
[2020-06-09] MEDS: ASPIRIN 81 MG TAB.CHEW PO SCH (10:21)
[2020-06-09] MEDS: ENOXAPARIN SODIUM 30 MG/0.3 ML SYRINGE SUBCUT SCH (10:22)
[2020-06-09] MEDS: INSULIN REGULAR, HUMAN 100 UNITS/ML, 10 ML VIAL (humuLIN R) SUBCUT PRN ×2 (11:07→23:27)
--- NOTE | 2020-06-09 11:13 | NUR ---
Blood Sugar Patients BS was ntoed at 161 mg/dL. Per sliding scale, administered 2 units of regular insulin, tolerated well.
[2020-06-09 11:18] LABS: BASOPHILS % (AUTO) 0.4 % (0.0-2.0); EOSINOPHILS # (AUTO) 0.1 K/uL (0.0-0.4); EOSINOPHILS % (AUTO) 0.9 % (0.0-4.0); HEMATOCRIT 41.4 % (36-54); HEMOGLOBIN 13.6 g/dL (14.0-18.0); LYMPHOCYTES # (AUTO) 0.7 K/uL (1.0-5.5); LYMPHOCYTES % (AUTO) 11.6 % (20.5-51.5); MEAN CORPUSCULAR HEMOGLOBIN 28 pg (27-31); MEAN CORPUSCULAR HGB CONC 33 % (32-36); MEAN CORPUSCULAR VOLUME 84 fL (79.0-98.0); MONOCYTES # (AUTO) 0.4 K/uL (0.0-1.0); MONOCYTES % (AUTO) 5.8 % (1.7-9.3); NEUTROPHILS # (AUTO) 5.1 K/uL (1.8-7.7); NEUTROPHILS % (AUTO) 81.3 % (40.0-70.0); PLATELET COUNT (AUTO) 100 K/uL (130-430); RED BLOOD CELL COUNT(AUTO) 4.93 MIL/uL (4.2-6.2); RED CELL DISTRIBUTION WIDTH 19.5 % (9.0-15.0); WHITE BLOOD COUNT (AUTO) 6.3 K/uL (4.8-10.8)
[2020-06-09 12:00] VITALS: BP_SYST 131
--- NOTE | 2020-06-09 12:00 | NUR ---
Wound Care/Refused Lunch & Meds/Agitation Patient is laying in bed resting at this time. Alert and oriented x1. Nurse performed wound care on patient, tolerated well. While being repositioned, patient became agitated and tried grabbing the nurses wrist and started kicking his legs in bed. Patient was reoriented, some agitation still noted. Pt refuses to eat lunch and take medications. Nurse educated patient on benefits of medication and nutrition, pt refused x3. No signs of pain or resp distress, Will try again later, will continue to monitor.
--- NOTE | 2020-06-09 12:35 | NUR ---
Spoke neil Machado at [facility] [phone] can facilitate DC if pt is stable.
--- NOTE | 2020-06-09 12:39 | NUR ---
[facility] cannot take pt covid (+)-they have a sister facility that can take the patient until he is covid negative.
--- NOTE | 2020-06-09 14:45 | NUR ---
Incontinence Care/RAPID COVID/AGITATION Patient is sliding down in bed. Soft wrist bilateral restraints still in place at this time, no injury noted. Patient is incontinent, cleaned, left dry and repositioned in bed. During repositioning, pt attempted to bite the nurse with his teeth. Pt was educated not to hurt the nurse. Patient is confused. All needs met, will continue to monitor. Addendum: 06/09/20 at 1543 by Kiera Jaimes RN COVID RAPID TEST WAS SENT TO LAB
[2020-06-09 14:56] LABS: ALANINE AMINOTRANSFERASE 28 U/L (12-78); ANION GAP 8 (5-15); ASPARTATE AMINOTRANSFERASE 31 U/L (10-37); CALCIUM 8.2 mg/dL (8.4-11.0); CHLORIDE 106 mmol/L (98-107); CREATININE 0.75 mg/dL (0.55-1.30); GLUCOSE 159 mg/dL (70-99); POTASSIUM 3.7 mmol/L (3.5-5.1); SODIUM SERUM 142 mmol/L (136-145); TOTAL BILIRUBIN 0.4 mg/dL (0.0-1.0); UREA NITROGEN, BLOOD 17 mg/dL (8-21)
--- NOTE | 2020-06-09 15:59 | NUR ---
SWALLOW/ORAL EVAL PROFESSIONAL [facility] CALLED LEFT A VOICEMAIL.
[2020-06-09 16:00] VITALS: BP_SYST 130
--- NOTE | 2020-06-09 16:00 | NUR ---
Notes Patient is noted sliding down in bed. Patient is agitated and yelling at the nurses. Cleaned, left dry and repositioned in bed. Pt offered water to drink but pt refuses. All needs met. Safety and fall precautions in place. Bed in lowest position, alarm on, locked.
--- NOTE | 2020-06-09 17:30 | NUR ---
Blood Sugar Patients BS was ntoed at 101 mg/dL. Per sliding scale, no coverage needed at this time. Will continue to monitor.
--- NOTE | 2020-06-09 18:56 | NUR ---
Closing Notes Patient is laying down in bed, noted sliding down in bed. Pt remains on soft wrist bilateral restraints, no injury noted at this time. No resp distress noted. Breathing is even and unlabored. Pt continues to have agitation and is noted yelling in bed. IV site on right upper arm, intact and flushing well. Saline lock. Pt refuses to eat dinner, ate 0% of meal. Patient was repositioned in bed. All needs met at this time. Safety, fall and isolation precautions in place. Bed in lowest position, alarm on, locked. Will continue to monitor.
--- NOTE | 2020-06-09 19:30 | NUR ---
Opening notes Received report. Patient resting in bed watching TV. No signs of distress noted. Breathing even and unlabored on room air. IV patent and intact, no signs of infiltration noted. Bilateral wrist restraints in place, no signs of injury noted. Call light with the patient. Safety precautions in place.
[2020-06-09 20:45] VITALS: BP_SYST 164
[2020-06-09] MEDS: ATORVASTATIN 20 MG TABLET PO SCH (21:14)
[2020-06-09] MEDS: MIRTAZAPINE 15 MG TABLET PO SCH (21:14)
--- NOTE | 2020-06-09 21:15 | NUR ---
Medications given. Educated the action and side effects of Depakote. Patient verbalized understanding and took medications by self. Patient also ate 25% of mash potatoes, and drank 1 cup of ice water and 1 apple juice. Patient tolerated well. Patient repositioned to comfort. Patient is combative at times and needs reorientation. No other needs. Call light with the patient. Safety precautions in place.
--- NOTE | 2020-06-09 23:05 | NUR ---
RN rounds Patient resting in bed, no signs of distress noted. Breathing even and unlabored on room air. Accucheck 155. Insulin given per sliding scale. Patient repositioned to comfort. Bilateral wrist restraints in place, no signs of injury. Call light with the patient. Safety precautions in place.
[2020-06-10] VITALS: BP_SYST 140
--- NOTE | 2020-06-10 01:50 | NUR ---
RN rounds Patient resting in bed, talking to self. no signs of distress noted. Breathing even and unlabored on room air. Patient repositioned to comfort. Bilateral wrist restraints in place, no signs of injury noted. Call light with the patient. Safety precautions in place.
--- NOTE | 2020-06-10 04:30 | NUR ---
RN rounds Patient resting in bed, hygiene care provided. Patient combative, reorientation required. Patient repositioned. Patient given orange juice. Accucheck 137. No insulin required. Bilateral wrist restraints in place, no signs of injury noted. No other needs. call light with the patient. Safety precautions in place.
--- NOTE | 2020-06-10 07:20 | NUR ---
Closing notes Patient is resting in bed, no signs of distress noted. Breathing even and unlabored on room air. IV patent and intact, no signs of infiltration noted. Hygiene care provided. Patient tolerated well. Bilateral wrist restraints in place no signs of injury noted. All needs met throughout the shift. call light with the patient. Safety precautions in place. Care endorsed to day shift RN
[2020-06-10 08:00] VITALS: BP_SYST 145
[2020-06-10] MEDS: QUEtiapine FUMARATE 100 MG TABLET PO SCH ×3 (08:00→21:19)
--- NOTE | 2020-06-10 08:15 | NUR ---
Opening Notes/Spit out, REFUSED Meds Patient is laying in bed, sliding down in bed. Alert and oriented x1. Pt remains on soft wrist bilateral restraints at this time, noted with dressings on bilateral forearms. Dressing clean and intact at this time. No agitation noted. No resp distress noted. Breathing is even and unlabored. IV site on right AC, 20 gauge intact at this time. Flushing well, saline lock. Pt refuses to eat at this time. Med were crushed and mixed with applesauce. Pt spit out medications. Pt educated on benefits of medications, refused x3. All needs met at this time. Safety and fall precautions in place. Bed in lowest position, alarm on, locked. Will continue to monitor. Addendum: 06/10/20 at 1451 by Kiera Jaimes RN Held Lovenox 30 mg IM dose, d/t low platelet count. MD Morgan made aware and agreed.
[2020-06-10] MEDS: FUROSEMIDE 20 MG TABLET PO SCH (09:00)
[2020-06-10] MEDS: ASPIRIN 81 MG TAB.CHEW PO SCH (09:00)
[2020-06-10] MEDS: MULTIVITAMINS TAB 1 TABLET PO SCH (09:00)
[2020-06-10] MEDS: DIVALPROEX SODIUM 250 MG TABLET(DEPAKOTE) PO SCH ×3 (09:00→21:19)
[2020-06-10] MEDS: METOPROLOL SUCCINATE 25 MG TAB.SR.24H (TOPROL XL) PO SCH ×2 (09:00→21:20)
[2020-06-10] MEDS: CLOPIDOGREL BISULFATE 75 MG TABLET PO SCH (09:00)
[2020-06-10] MEDS: ENOXAPARIN SODIUM 30 MG/0.3 ML SYRINGE SUBCUT SCH (09:00)
[2020-06-10] MEDS: TAMSULOSIN HCL 0.4 MG CAP PO SCH (09:00)
--- NOTE | 2020-06-10 10:07 | NUR ---
Notes Patient is laying in bed and watching TV. No resp distress noted. Breathing is even and unlabored. No signs of pain. Will continue to monitor.
[2020-06-10] MEDS ORDERED: MEPERIDINE HCL/PF 25 MG/ML DISP.SYRIN IM PRN (11:15)
--- NOTE | 2020-06-10 11:30 | NUR ---
Blood Sugar Patients BS was noted at 126 mg/dL. Per sliding scale, no coverage needed at this time. Will continue to monitor.
--- NOTE | 2020-06-10 11:57 | NUR ---
CONSULTATION PAGED/CALLED Reason for Consultation: [] AGITATION Person Who was Notified: [] TROY Consulting Physician: [] DR TAVERAS Inside Sales Manager Specialty: [] PSYCH Ordering Physician: [] DR ESPINAL
--- NOTE | 2020-06-10 12:00 | NUR ---
Notes/Wound Care/Demerol 25 mg IVP x pain Patient is c/o gen body pain, 01/22. Per patient, "carlos Langston." Administered Demerol 25 mg IVP, tolerated well. Nurse also completed wound care, tolerated well. Soft wrist bilateral restraints were released during wound care (release time: 10 minutes). Patient is sleeping at this time, refused his Seroquel 100 mg dose due at 1200. Patient was started on NS @ 75 cc/hr, infusing well at this time. All needs met. Safety and fall precaution in place. Bed in lowest position, alarm on, locked. Will continue to monitor.
[2020-06-10 12:26] VITALS: BP_SYST 128
[2020-06-10] MEDS: NACL 0.9% 1,000 ML IV SCH (12:27)
[2020-06-10] MEDS ORDERED: MEPERIDINE HCL/PF 25 MG/ML DISP.SYRIN IVP PRN (12:30)
--- NOTE | 2020-06-10 14:46 | NUR ---
Notes Patient is laying in bed, sleeping at this time. No resp distress noted. Breathing is even and unlabored. No signs of pain. Will continue to monitor.
[2020-06-10 16:00] VITALS: BP_SYST 138
--- NOTE | 2020-06-10 16:15 | NUR ---
Notes Patient is laying in bed, resting at this time, noted sliding down in bed. No resp distress noted. Breathing is even and unlabored. Pt shows no signs of pain at this time. Will continue to monitor.
--- NOTE | 2020-06-10 17:30 | NUR ---
Blood Sugar Patients BS was noted at 142 mg/dL. Per sliding scale, no coverage needed at this time. Will continue to monitor.
--- NOTE | 2020-06-10 18:49 | NUR ---
Closing Notes Patient is laying down in bed, noted sliding down in bed. Pt remains on soft wrist bilateral restraints, no injury noted at this time. No resp distress noted. Breathing is even and unlabored. Pt continues to have agitation and is noted yelling in bed. IV site on right upper arm, intact and flushing well. NS @ 75 cc/hr, infusing well at this time. Pt refuses to eat dinner, ate 0% of meal, will endorse to next nurse. Patient was repositioned in bed. All needs met at this time. Safety, fall and isolation precautions in place. Bed in lowest position, alarm on, locked. Will continue to monitor.
--- NOTE | 2020-06-10 19:30 | NUR ---
Opening notes Received report. Patient resting in bed watching TV. No signs of distress noted. Breathing even and unlabored on room air. IV patent and intact, infusing fluids. Bilateral wrist restraints in place, no signs of injury noted. Call light with the patient. Safety precautions in place.
[2020-06-10] MEDS: MIRTAZAPINE 15 MG TABLET PO SCH (21:19)
[2020-06-10] MEDS: ATORVASTATIN 20 MG TABLET PO SCH (21:19)
[2020-06-10 21:24] VITALS: BP_SYST 150
--- NOTE | 2020-06-10 21:30 | NUR ---
Medications given. Educated the action and side effects of Lipitor. Patient verbalized understanding and took medications by self. Patient also ate couple bites of potato and ice cream. Patient tolerated well. Patient repositioned to comfort. Patient is combative at times and needs reorientation. No other needs. Call light with the patient. Safety precautions in place.
[2020-06-11 00:25] VITALS: BP_SYST 124
--- NOTE | 2020-06-11 00:29 | NUR ---
RN rounds Patient resting in bed, no signs of distress noted. Breathing even and unlabored on room air. IVF infusing well. Hygiene care provided. Accucheck 146. No insulin necessary. Patient repositioned to comfort. Bilateral wrist restraints in place, no signs of injury noted. No other needs. Call light with the patient. Safety precautions in place.
[2020-06-11] MEDS: NACL 0.9% 1,000 ML IV SCH ×2 (01:45→13:55)
--- NOTE | 2020-06-11 02:30 | NUR ---
RN rounds Patient is resting in bed, no signs of distress noted. breathing even and unlabored on room air. IVF infusing well. No needs at this time. Call light with the patient. Safety precautions in place.
--- NOTE | 2020-06-11 04:15 | NUR ---
RN rounds Patient resting in bed, no signs of distress noted. Breathing even and unlabored on room air. IVF infusing well. Hygiene care provided. Patient tolerated well. Bilateral wrist restraints in place, no signs of injury noted. No other needs. call light with the patient. Safety precautions in place.
--- NOTE | 2020-06-11 06:38 | NUR ---
Closing notes Patient is resting in bed, no signs of distress noted. Breathing even and unlabored on room air. IV patent and intact, infusing fluids. Bilateral wrist restraints in place no signs of injury noted. All needs met throughout the shift. call light with the patient. Safety precautions in place. Will endorse care to day shift RN.
[2020-06-11 08:00] VITALS: BP_SYST 145
[2020-06-11] MEDS: QUEtiapine FUMARATE 100 MG TABLET PO SCH ×3 (08:00→21:46)
--- NOTE | 2020-06-11 08:00 | NUR ---
A/Ox4, no signs of distress noted. Breathing even and unlabored on room air. IV site infusing IV fluids, patent and intact, infusing fluids. Bilat wrist restraints in place; no injuries noted. Call light in place, bed locked at the lowest position, will continue to monitor. Addendum: 06/12/20 at 1924 by John Escalante RN [email or web address]
[2020-06-11] MEDS: CLOPIDOGREL BISULFATE 75 MG TABLET PO SCH (08:58)
[2020-06-11] MEDS: TAMSULOSIN HCL 0.4 MG CAP PO SCH (08:58)
[2020-06-11] MEDS: FUROSEMIDE 20 MG TABLET PO SCH (08:58)
[2020-06-11] MEDS: DIVALPROEX SODIUM 250 MG TABLET(DEPAKOTE) PO SCH ×3 (08:58→21:00)
[2020-06-11] MEDS: MULTIVITAMINS TAB 1 TABLET PO SCH (08:58)
[2020-06-11] MEDS: ASPIRIN 81 MG TAB.CHEW PO SCH (08:58)
[2020-06-11] MEDS: METOPROLOL SUCCINATE 25 MG TAB.SR.24H (TOPROL XL) PO SCH ×2 (08:59→21:46)
[2020-06-11] MEDS: ENOXAPARIN SODIUM 30 MG/0.3 ML SYRINGE SUBCUT SCH (08:59)
--- NOTE | 2020-06-11 09:47 | NUR ---
Patient is turned and repositioned for comfort.
[2020-06-11 11:49] LABS: BASOPHILS % (AUTO) 0.6 % (0.0-2.0); EOSINOPHILS # (AUTO) 0.1 K/uL (0.0-0.4); EOSINOPHILS % (AUTO) 1.8 % (0.0-4.0); HEMATOCRIT 39.5 % (36-54); HEMOGLOBIN 12.6 g/dL (14.0-18.0); LYMPHOCYTES # (AUTO) 0.8 K/uL (1.0-5.5); MEAN CORPUSCULAR HEMOGLOBIN 27 pg (27-31); MEAN CORPUSCULAR HGB CONC 32 % (32-36); MEAN CORPUSCULAR VOLUME 85 fL (79.0-98.0); MONOCYTES # (AUTO) 0.4 K/uL (0.0-1.0); MONOCYTES % (AUTO) 9.3 % (1.7-9.3); NEUTROPHILS # (AUTO) 2.8 K/uL (1.8-7.7); NEUTROPHILS % (AUTO) 69.3 % (40.0-70.0); PLATELET COUNT (AUTO) 83 K/uL (130-430); RED BLOOD CELL COUNT(AUTO) 4.63 MIL/uL (4.2-6.2); RED CELL DISTRIBUTION WIDTH 19.8 % (9.0-15.0); WHITE BLOOD COUNT (AUTO) 4.1 K/uL (4.8-10.8)
--- NOTE | 2020-06-11 12:00 | NUR ---
PATIENT IS CONFUSED AND AGITATED WHEN RN ATTEMPTS TO FEED PATIENT DESPITE ENCOURAGEMENT.
[2020-06-11 12:11] LABS: ALANINE AMINOTRANSFERASE 27 U/L (12-78); ANION GAP 6 (5-15); ASPARTATE AMINOTRANSFERASE 37 U/L (10-37); CALCIUM 8.2 mg/dL (8.4-11.0); CHLORIDE 108 mmol/L (98-107); GLUCOSE 125 mg/dL (70-99); POTASSIUM 3.5 mmol/L (3.5-5.1); SODIUM SERUM 143 mmol/L (136-145); TOTAL BILIRUBIN 0.7 mg/dL (0.0-1.0); UREA NITROGEN, BLOOD 16 mg/dL (8-21)
[2020-06-11 12:13] VITALS: BP_SYST 154
--- NOTE | 2020-06-11 12:55 | NUR ---
Nutrition F/U Admitting Diagnosis COVID positive/dehydration Reviewed Pertinent Medical/Surgical Hx Medical Record Other Medical History Comment: PMH: psych disorder, HTN per physician notes SARS-CoV-2 (PCR) Positive 06/01 SARS-CoV-2 Ag Positive 06/01 Subjective Information: RD bedside visit deferred d/t isolation precautions and PPE conservation efforts. Per EMR, pt continues w/ very poor PO intakes. Nursing notes indicate that pt has been confused/agitated during attempts to feed pt despite encouragement. Physician notes indicate pt has a pending psych consult, and case management is having difficulty placing pt at a SNF. Current Diet Order/Nutrition Support: CCHO w/ Glucerna TID x7 days Pertinent Medications: Pt has been refusing meds today; active orders for seroquel, lasix, Lovenox, MVI, Remeron, Lipitor Pertinent Labs: BG 125 H (trending down), POC BG 102 H (trending down), ALP 99 H (WNL), ALB 2 L Skin Integrity Comment: Hiram scale: 13; per Wet Process Miller note 06/02: 1. Left Distal Posterior Forearm: Skin tear, present on admission. 2. Right Distal Posterior Forearm: Skin tear, present on admission. 3. Right dorsal Hand: Skin tear, present on admission. 4. Left Upper Extremity: Multiple areas of dark discolored ecchymosis, present on admission. 5. Right Forearm: Multiple dry scabs, present on admission. 6. Left barnes: Multiple dry scabs, present on admission. 7. Right barnes: Large dry scab, present on admission. 8. Left lateral hip: Large area of purple ecchymosis, present on admission. Current % PO Negligible < 25% x12 meal records Estimated Energy Expenditure (kcals/day) 3741-4280 kcal/day (30-35 kcal/kg CBW for acute state) Estimated Protein Required (g/day) 79-99 gm/day (1.2-1.5 gm/kg CBW for acute state) Estimated Fluid Required (l/day) 2-2.3 L/day (1 ml/kcal/day for maintenance) Problem/Etiology/Signs/Symptoms Inadequate nutritional intakes related to metabolic demands as evidenced by inability to meet estimated nutritional requirements for acute state w/ current negligible PO intakes. *ongoing Expected Outcomes/Goals - Monitor appetite and PO intakes w/ goal of pt meeting at least 50% of estimated nutritional needs, labs trending WNL, normal GI function, and skin integrity/wt maintenance Dietitian Recommendations * Recommend continuing CCHO diet w/ Glucerna TID (ONS provides an additional 660 kcal/day, 30 gm protein/day) * Encourage increase PO intake during meal times * If negligible PO intake persists, pt may benefit from alternative nutrition support Follow Up High Risk: F/U in 2-3 days
--- NOTE | 2020-06-11 13:05 | NUR ---
Dietitian Recommendations * Recommend continuing CCHO diet w/ Glucerna TID (ONS provides an additional 660 kcal/day, 30 gm protein/day) * Encourage increase PO intake during meal times * If negligible PO intake persists, pt may benefit from alternative nutrition support LP, RD Please refer to Nutrition F/U for details.
--- NOTE | 2020-06-11 15:00 | NUR ---
PATIENT IS RESTING AT THIS TIME. NO SIGNS OF DISTRESS NOTED.
[2020-06-11 16:00] VITALS: BP_SYST 151
--- NOTE | 2020-06-11 16:23 | NUR ---
S.T. SWALLOW EVAL SWALLOW EVAL PERFORMED. PT PRESENTS W/ SEV PRE-ORAL DYSPHAGIA W/ POOR INTEREST FOR P.O., P.O. REFUSAL, OR SPITTING OUT P.O. TRIALS. UNABLE TO DETERMINE ORAL AND PHARYNGEAL SWALLOW FUNCTION. UNABLE TO R/O ASPIRATION RISK. PT IS AT RISK FOR MALNUTRITION AND DEHYDRATION IF STAY ON P.O. REC: MAY NEED TO CONSIDER TUBE FEEDING IF P.O. REFUSAL PERSISTS. CONSIDER RE-EVAL IF PT INCREASES HIS P.O. INTEREST. NURSE BRITTNI NOTIFIED.
--- NOTE | 2020-06-11 17:12 | NUR ---
DC Barriers: ST note: REC: MAY NEED TO CONSIDER TUBE FEEDING IF P.O. REFUSAL PERSISTS. CONSIDER RE-EVAL IF PT INCREASES HIS P.O. INTEREST. >> Pending psych clearance for discharge.
--- NOTE | 2020-06-11 17:40 | NUR ---
PATIENT REFUSED TO EAT DESPITE RN'S ENCOURAGEMENT.
--- NOTE | 2020-06-11 19:28 | NUR ---
DR. MERCER AT BEDSIDE, AND PATIENT'S CURRENT CONDITION IS GIVEN.
[2020-06-11] MEDS ORDERED: DIPHENHYDRAMINE INJ 50 MG/ML VIAL IM PRN (19:30)
[2020-06-11] MEDS ORDERED: LORazepam 2 MG/ML VIAL IVP PRN (19:45)
[2020-06-11 20:00] VITALS: BP_SYST 136
--- NOTE | 2020-06-11 20:00 | NUR ---
REPORT Received report from day nurse, patient lying in bed, aox1, confused, on room air, vitals stable, bilateral wrist restraints in place, fall and isolation precautions in place.
[2020-06-11] MEDS: ATORVASTATIN 20 MG TABLET PO SCH (21:00)
[2020-06-11] MEDS: MIRTAZAPINE 15 MG TABLET PO SCH (21:00)
--- NOTE | 2020-06-11 22:00 | NUR ---
MED PASS Patient tolerated medications, crushed and given pudding, aspiration precautions maintained, hygiene care provided, repositioned for comfort.
[2020-06-12] VITALS: BP_SYST 134
--- NOTE | 2020-06-12 00:30 | NUR ---
RN ROUNDS Patient resting quietly in bed, respirations even and unlabored, vitals stable, repositioned for comfort, bilateral wrist restraints in place, bed and isolation precautions in place.
--- NOTE | 2020-06-12 02:05 | NUR ---
RN ROUNDS Patient continues to rest quietly in bed, remains on room air, respirations even and unlabored, repositioned for comfort, bilateral wrist restraints in place, bed and isolation precautions in place.
[2020-06-12] MEDS: NACL 0.9% 1,000 ML IV SCH ×2 (03:08→16:35)
--- NOTE | 2020-06-12 04:24 | NUR ---
RN ROUNDS Patient awake, in no distress, hygiene care provided, repositioned for comfort. Bilateral wrist restraints in place, safety measures in place.
--- NOTE | 2020-06-12 06:11 | NUR ---
RN ROUNDS Patient awake, in no distress, remains on room air, repositioned for comfort, bilateral wrist restraints in place, IV line to right upper arm intact and patent, IVF continues to infuse, needs attended to, safety and isolation precautions maintained through out the shift, will monitor until report given to am nurse.
[2020-06-12 08:00] VITALS: BP_SYST 140
[2020-06-12] MEDS: QUEtiapine FUMARATE 100 MG TABLET PO SCH ×3 (08:00→21:16)
--- NOTE | 2020-06-12 08:00 | NUR ---
A/Ox1, no signs of distress noted. Breathing even and unlabored on room air. IV site infusing IV fluids, patent and intact, infusing fluids. Bilat wrist restraints in place; no injuries noted. Call light in place, bed locked at the lowest position, will continue to monitor.
[2020-06-12] MEDS: TAMSULOSIN HCL 0.4 MG CAP PO SCH (08:52)
[2020-06-12] MEDS: FUROSEMIDE 20 MG TABLET PO SCH (08:52)
[2020-06-12] MEDS: ASPIRIN 81 MG TAB.CHEW PO SCH (08:52)
[2020-06-12] MEDS: CLOPIDOGREL BISULFATE 75 MG TABLET PO SCH (08:53)
[2020-06-12] MEDS: ENOXAPARIN SODIUM 30 MG/0.3 ML SYRINGE SUBCUT SCH (08:53)
[2020-06-12] MEDS: MULTIVITAMINS TAB 1 TABLET PO SCH (08:53)
[2020-06-12] MEDS: METOPROLOL SUCCINATE 25 MG TAB.SR.24H (TOPROL XL) PO SCH ×2 (08:53→21:17)
[2020-06-12] MEDS: DIVALPROEX SODIUM 250 MG TABLET(DEPAKOTE) PO SCH ×3 (09:00→21:16)
--- NOTE | 2020-06-12 09:40 | NUR ---
Patient refused morning medications despite encouragement.
[2020-06-12 11:53] VITALS: BP_SYST 129
[2020-06-12 12:00] VITALS: BP_SYST 148
--- NOTE | 2020-06-12 12:00 | NUR ---
BS at 139. No coverage needed.
--- NOTE | 2020-06-12 14:28 | NUR ---
Patient is resting at this time. No signs of distress noted.
--- NOTE | 2020-06-12 14:53 | NUR ---
[employer] Casting Machine Operator : Follow u HUNTER spoke to Kit Escalante who stated patient is still Covid positive, minor symptoms, not ready for discharge. Rn confirmed patient may need tube feeding. No futher updates.
[2020-06-12 16:00] VITALS: BP_SYST 148
--- NOTE | 2020-06-12 18:00 | NUR ---
blood sugar 117. No coverage needed.
--- NOTE | 2020-06-12 19:44 | NUR ---
REPORT Received report from day nurse, patient lying in bed, awake, confused, on room air, vitals stable, bilateral wrist restraints in place, fall and isolation precautions in place.
[2020-06-12 20:00] VITALS: BP_SYST 133
[2020-06-12] MEDS: ATORVASTATIN 20 MG TABLET PO SCH (21:16)
[2020-06-12] MEDS: MIRTAZAPINE 15 MG TABLET PO SCH (21:16)
--- NOTE | 2020-06-12 21:21 | NUR ---
MED PASS Patient awake, due medications administered, crushed and given with applesauce, patient able to take a couple spoon full of medications. Aspiration precautions maintained, repositioned for comfort.
--- NOTE | 2020-06-12 22:20 | NUR ---
RN ROUNDS Patient resting quietly in bed, respirations even and unlabored, remains on room air, repositioned for comfort, bilateral wrist restraints in place, bed and isolation precautions in place.
--- NOTE | 2020-06-13 00:15 | NUR ---
RN ROUNDS Patient awake, vital signs stable, hygiene care provided, repositioned for comfort, blood sugar this pm of 132, no insulin coverage needed. Bilateral wrist restraints in place, bed and isolation precautions in place.
[2020-06-13 00:16] VITALS: BP_SYST 146
--- NOTE | 2020-06-13 02:14 | NUR ---
RN ROUNDS Patient resting quietly in bed, remains on room air, respirations even and unlabored, repositioned for comfort, bilateral wrist restraints in place, bed and isolation precautions in place.
--- NOTE | 2020-06-13 04:31 | NUR ---
RN ROUNDS Patient awake, in no distress, hygiene care provided, repositioned for comfort. Bilateral wrist restraints in place, safety measures in place.
--- NOTE | 2020-06-13 05:00 | NUR ---
WOUND CARE Wound care done to right forearm skin tears, covered with foam dressing, patient tolerated well.
[2020-06-13] MEDS: NACL 0.9% 1,000 ML IV SCH ×2 (06:26→18:52)
--- NOTE | 2020-06-13 06:37 | NUR ---
RN ROUNDS Patient awake, in no distress, blood sugar check this am of 117, no insulin coverage needed, hygiene care provided, repositioned for comfort. Bilateral wrist restraints in place, safety measures maintained through out the shift, will continue to monitor until report given to am nurse.
[2020-06-13] MEDS: QUEtiapine FUMARATE 100 MG TABLET PO SCH ×3 (07:41→21:41)
[2020-06-13 09:00] VITALS: BP_SYST 117
[2020-06-13] MEDS: CLOPIDOGREL BISULFATE 75 MG TABLET PO SCH ×2 (09:00→09:05)
[2020-06-13] MEDS: DIVALPROEX SODIUM 250 MG TABLET(DEPAKOTE) PO SCH ×4 (09:00→21:38)
[2020-06-13] MEDS: MULTIVITAMINS TAB 1 TABLET PO SCH ×2 (09:00→09:05)
[2020-06-13] MEDS: FUROSEMIDE 20 MG TABLET PO SCH ×2 (09:00→09:05)
[2020-06-13] MEDS: METOPROLOL SUCCINATE 25 MG TAB.SR.24H (TOPROL XL) PO SCH ×3 (09:00→21:42)
[2020-06-13] MEDS: TAMSULOSIN HCL 0.4 MG CAP PO SCH ×2 (09:00→09:04)
[2020-06-13] MEDS: ASPIRIN 81 MG TAB.CHEW PO SCH ×2 (09:00→09:03)
[2020-06-13] MEDS: ENOXAPARIN SODIUM 30 MG/0.3 ML SYRINGE SUBCUT SCH (09:33)
--- NOTE | 2020-06-13 11:40 | NUR ---
DC Barriers: Covid-19 positive x3, (06/01, and repeated PCR 06/09 was also positive). DCP : SNF with psych unit where accepting positive Covid patient. The patient may need GI placement dt not eating, refused meds , confusion. Pending Psych clearance for placement as well.
[2020-06-13 12:00] VITALS: BP_SYST 119
[2020-06-13 16:00] VITALS: BP_SYST 130
--- NOTE | 2020-06-13 16:55 | NUR ---
[place] of care Late entry due to patient care patient is in bed awake and alert. Patient speaks italian only. Patient appears to be confused. O2 saturation on room air is 92 percent. IVF of NS at 70 ml per hour running . patient is on bilateral wrist restraints. Unable to informed of plan of care due to language barrier. Patient refused to eat breakfast but drink a little of his ensure 0930 : Med Pass patient refused all due meds at this time. Kept patient clean and dry 1400 Wound care to the bilateral upper extremities skin tear done. Removed restraints as patient has been cooperative even with Patient refused lunch at this time.
--- NOTE | 2020-06-13 19:20 | NUR ---
CLOSING NOTES LATE ENTRY DUE TO PATIENT CARE 1400- REFUSED TO EAT LUNCH. PATIENT REMAINED OFF RESTRAINTS. NO DISTRESS ON ROOM AIR 1900- REFUSED DINNER. WOUND CARE TO THE BILATERAL UPPER EXTREMITIES SKIN TEAR DONE. PATIENT DRY AND COMFORTABLE.
--- NOTE | 2020-06-13 19:30 | NUR ---
Opening note late entry d/t patient care. Received patient awake, resting in bed, t.v. is on, no distress. bed alarm on, side rails up 3x, IVF infusing via IV to VÍCTOR.
[2020-06-13 20:00] VITALS: BP_SYST 112
--- NOTE | 2020-06-13 20:10 | NUR ---
Bed alarm patient attempting to stand up - he was assisted by nurse (DENNIS Claudio)
[2020-06-13] MEDS: ATORVASTATIN 20 MG TABLET PO SCH (21:39)
[2020-06-13] MEDS: MIRTAZAPINE 15 MG TABLET PO SCH (21:44)
--- NOTE | 2020-06-13 21:50 | NUR ---
Meds Due meds given to patient. I place one or two pills on spoon and followed with one spoon of applesauce and small sip of water. He was reluctant and distracted for taking meds, yet he did take all meds.
[2020-06-14 01:20] VITALS: BP_SYST 145
--- NOTE | 2020-06-14 01:27 | NUR ---
accucheck accucheck done w/ result of 137 mg/dL.
[2020-06-14] MEDS: NACL 0.9% 1,000 ML IV SCH ×2 (06:33→21:30)
--- NOTE | 2020-06-14 06:33 | NUR ---
accucheck, IVF Accucheck done;126 mg/dL. Hung new bag of IV; NS infusing as ordered, no infiltration, tolerating.
--- NOTE | 2020-06-14 07:03 | NUR ---
closing note Resting in comfortable position, no distress, stable, IVF infusing well. He was repositioned and provided with clean linen; he did cooperate though he was not active participant; he said he is sleeping and wants to be left alone. Safety, isolation, aspiration precautions maintained. will endorse care to day shift nurse.
[2020-06-14 08:00] VITALS: BP_SYST 118
--- NOTE | 2020-06-14 08:30 | NUR ---
INITIAL NOTES Wants to sleep, refusing breakfast at this time. Afebrile, On o2 1L, o2 sat at 95%. No distress noted. Will continue to monitor.
[2020-06-14] MEDS: CLOPIDOGREL BISULFATE 75 MG TABLET PO SCH (09:00)
[2020-06-14] MEDS: QUEtiapine FUMARATE 100 MG TABLET PO SCH ×3 (09:00→21:30)
[2020-06-14] MEDS: TAMSULOSIN HCL 0.4 MG CAP PO SCH (09:00)
[2020-06-14] MEDS: METOPROLOL SUCCINATE 25 MG TAB.SR.24H (TOPROL XL) PO SCH ×2 (09:00→21:30)
[2020-06-14] MEDS: FUROSEMIDE 20 MG TABLET PO SCH (09:00)
[2020-06-14] MEDS: MULTIVITAMINS TAB 1 TABLET PO SCH (09:00)
[2020-06-14] MEDS: ASPIRIN 81 MG TAB.CHEW PO SCH (09:00)
[2020-06-14] MEDS: DIVALPROEX SODIUM 250 MG TABLET(DEPAKOTE) PO SCH ×3 (09:00→21:30)
[2020-06-14] MEDS: ENOXAPARIN SODIUM 30 MG/0.3 ML SYRINGE SUBCUT SCH (09:00)
--- NOTE | 2020-06-14 11:58 | NUR ---
GI consult called: for Dr. Ferris, regarding not eating, ordered by Dr. Cihrinos, spoke with Rosa M.
--- NOTE | 2020-06-14 12:00 | NUR ---
Notes- Refusing to eat and to take his meds, afebrile. No signs of agitation so far.
[2020-06-14 12:32] LABS: BASOPHILS % (AUTO) 0.4 % (0.0-2.0); EOSINOPHILS # (AUTO) 0.1 K/uL (0.0-0.4); EOSINOPHILS % (AUTO) 1.9 % (0.0-4.0); HEMATOCRIT 35.9 % (36-54); HEMOGLOBIN 11.5 g/dL (14.0-18.0); MEAN CORPUSCULAR HEMOGLOBIN 28 pg (27-31); MEAN CORPUSCULAR HGB CONC 32 % (32-36); MEAN CORPUSCULAR VOLUME 86 fL (79.0-98.0); MONOCYTES # (AUTO) 0.3 K/uL (0.0-1.0); MONOCYTES % (AUTO) 8.2 % (1.7-9.3); NEUTROPHILS # (AUTO) 2.6 K/uL (1.8-7.7); NEUTROPHILS % (AUTO) 65.5 % (40.0-70.0); PLATELET COUNT (AUTO) 70 K/uL (130-430); RED BLOOD CELL COUNT(AUTO) 4.18 MIL/uL (4.2-6.2); RED CELL DISTRIBUTION WIDTH 20.2 % (9.0-15.0)
[2020-06-14 12:48] LABS: ANION GAP 6 (5-15); CHLORIDE 111 mmol/L (98-107); CREATININE 0.55 mg/dL (0.55-1.30); GLUCOSE 122 mg/dL (70-99); SODIUM SERUM 145 mmol/L (136-145); UREA NITROGEN, BLOOD 11 mg/dL (8-21)
[2020-06-14 12:54] LABS: ALANINE AMINOTRANSFERASE 25 U/L (12-78); ALBUMIN 1.8 g/dL (3.4-4.8); ASPARTATE AMINOTRANSFERASE 33 U/L (10-37); TOTAL BILIRUBIN 0.6 mg/dL (0.0-1.0)
--- NOTE | 2020-06-14 13:03 | NUR ---
CONSULTATION PAGED/CALLED Reason for Consultation: [] NOT EATING Person Who was Notified: [] GONZALO Consulting Physician: [] DR Dave CHURCH Deputy Court Clerk Specialty: [] GI Ordering Physician: [] DR JACOBO
--- NOTE | 2020-06-14 14:24 | NUR ---
Nutrition F/U Admitting Diagnosis: COVID positive/dehydration Medical History Comment: PMH: psych disorder, HTN per physician notes 06/14 MD notes: Dementia SARS-CoV-2 (PCR) Positive 06/01, Positive 06/09 SARS-CoV-2 Ag Positive 06/01 Subjective Information: RD bedside visit deferred d/t isolation precautions and PPE conservation efforts. RD s/w pt's primary RN at nursing unit who reported that pt did not eat anything this am. RD discussed possible EN support. RN to discuss w/ MD. Per EMR review, pt is seen by speech therapist on 06/11 and evaluation showed severe pre-oral dysphagia w/ poor interest for PO, refusal /spitting out of meals and ST rec to consider EN support. Pt remains agitated and in restraints. RN reported that pt may be discharged but does not have a day yet. Current Diet Order/Nutrition Support: CCHO w/ Glucerna TID x10 days Pertinent Medications: seroquel, lasix, Lovenox, MVI, Remeron, Lipitor, haldol Pertinent Labs:06/11 BG 125 H (trending down), POC BG 126 H 06/14, ALP 99 H (WNL), ALB 2 L Skin Integrity Comment: Hiram scale: 15; per [facility] Starter note 06/02: 1. Left Distal Posterior Forearm: Skin tear, present on admission. 2. Right Distal Posterior Forearm: Skin tear, present on admission. 3. Right dorsal Hand: Skin tear, present on admission. 4. Left Upper Extremity: Multiple areas of dark discolored ecchymosis, present on admission. 5. Right Forearm: Multiple dry scabs, present on admission. 6. Left barens: Multiple dry scabs, present on admission. 7. Right barnes: Large dry scab, present on admission. 8. Left lateral hip: Large area of purple ecchymosis, present on admission. Current % PO Negligible 11% average of 9 meals in the past [address] F/U Estimated Energy Expenditure (kcals/day) 2544-9700 kcal/day (30-35 kcal/kg CBW for acute state) Estimated Protein Required (g/day) 79-99 gm/day (1.2-1.5 gm/kg CBW for acute state) Estimated Fluid Required (l/day) 2-2.3 L/day (1 ml/kcal/day for maintenance) Problem/Etiology/Signs/Symptoms Inadequate nutritional intakes related to metabolic demands as evidenced by inability to meet estimated nutritional requirements for acute state w/ current negligible PO intakes. *ongoing Expected Outcomes/Goals - Monitor appetite and PO intakes, provision of nutrition support w/ goal of pt meeting at least 50% of estimated nutritional needs, labs trending WNL, normal GI function, and skin integrity/wt maintenance Dietitian Recommendations * Consider EN support via NGT per HAIR STYLIST recommendation. * Recommend continuing CCHO diet w/ Glucerna TID (ONS provides an additional 660 kcal/day, 30 gm protein/day) * Encourage increase PO intake during meal times Follow Up High Risk: F/U in 2-3 days
--- NOTE | 2020-06-14 14:40 | NUR ---
Dietitian Recommendations * Consider EN support via NGT per INTEGRITY DIRECTOR recommendation. * Recommend continuing CCHO diet w/ Glucerna TID (ONS provides an additional 660 kcal/day, 30 gm protein/day) * Encourage increase PO intake during meal times Please see Nutrition F/U note for details. SARA, RD
--- NOTE | 2020-06-14 15:28 | NUR ---
Notes- Resting, calm at this time, repositioned for comfort, no acute distress noted
[2020-06-14 16:41] VITALS: BP_SYST 153
--- NOTE | 2020-06-14 18:29 | NUR ---
Notes- still refusing to eat or drink, No acute distress noted. afebrile. IVF infusing well. Will endorse.
--- NOTE | 2020-06-14 19:30 | NUR ---
OPENING NOTE Received report from day shift nurse, patient lying in bed, aox1, confused, on room air, vitals stable, fall and isolation precautions in place. Will continue to monitor.
[2020-06-14 21:00] VITALS: BP_SYST 140
[2020-06-14] MEDS: MIRTAZAPINE 15 MG TABLET PO SCH (21:30)
[2020-06-14] MEDS: ATORVASTATIN 20 MG TABLET PO SCH (21:30)
--- NOTE | 2020-06-14 22:35 | NUR ---
RN NOTE: PT ATTEMPTING TO GET OUT OF BED. PT REPOSITIONED FOR COMFORT. PT CLEANED AND INCONTINENCE CARE PROVIDED. PT TOLERATED WELL. NO S/S OF ACUTE DISTRESS. SAFETY AND ISOLATION PRECAUTIONS MAINTAINED. WILL MONITOR.
[2020-06-15] MEDS: INSULIN REGULAR, HUMAN 100 UNITS/ML, 10 ML VIAL (humuLIN R) SUBCUT PRN (00:05)
--- NOTE | 2020-06-15 00:05 | NUR ---
ACCUCHECK BLOOD SUGAR OF 162, 2 UNITS OF REGULAR INSULIN ADMINISTERED PER SLIDING SCALE.
[2020-06-15 00:25] VITALS: BP_SYST 155
[2020-06-15 08:00] VITALS: BP_SYST 144
--- NOTE | 2020-06-15 08:00 | NUR ---
Note Pt drowsy and restless. No SOB/resp distress or pain/discomfort noted at this time. IV in KAPIL intact and patent infusing IVF's well. Pt refuses any breakfast at this time. No needs noted at this time. Call light within reach.
[2020-06-15] MEDS: MULTIVITAMINS TAB 1 TABLET PO SCH (09:00)
[2020-06-15] MEDS: FUROSEMIDE 20 MG TABLET PO SCH (09:00)
[2020-06-15] MEDS: DIVALPROEX SODIUM 250 MG TABLET(DEPAKOTE) PO SCH ×3 (09:00→21:43)
[2020-06-15] MEDS: ASPIRIN 81 MG TAB.CHEW PO SCH (09:00)
[2020-06-15] MEDS: METOPROLOL SUCCINATE 25 MG TAB.SR.24H (TOPROL XL) PO SCH ×2 (09:00→21:44)
[2020-06-15] MEDS: TAMSULOSIN HCL 0.4 MG CAP PO SCH (09:00)
[2020-06-15] MEDS: CLOPIDOGREL BISULFATE 75 MG TABLET PO SCH (09:00)
[2020-06-15] MEDS: QUEtiapine FUMARATE 100 MG TABLET PO SCH ×3 (09:45→21:44)
[2020-06-15] MEDS: ENOXAPARIN SODIUM 30 MG/0.3 ML SYRINGE SUBCUT SCH (09:47)
--- NOTE | 2020-06-15 10:00 | NUR ---
Note Pt refused all PO medications 8am-9am. Pt spits out all medications and food at this time. Pt just wants to rest and verbally loud when any attempts made for interaction. Pt resting in bed with IVF's infusing well. No needs noted at this time. Call light within reach.
[2020-06-15 12:00] VITALS: BP_SYST 129
--- NOTE | 2020-06-15 12:00 | NUR ---
Note Pt refusing to eat any lunch at this time. Pt's Accu check at 154 - no Insulin given as pt refuses any food/drink at this time. Call light within reach.
[2020-06-15] MEDS: NACL 0.9% 1,000 ML IV SCH ×2 (12:13→23:38)
--- NOTE | 2020-06-15 14:30 | NUR ---
Note Dr Cortes at bedside assessing pt at this time. Call light within reach.
[2020-06-15 15:31] VITALS: BP_SYST 133
--- NOTE | 2020-06-15 18:25 | NUR ---
Note Pt refused all 3 meals and any PO medications today. No SOB/resp distress or pain/discomfort noted at this time. IV in KAPIL intact and patent infusing IVF's well. Pt was checked on q1' and PRN all shift for needs and care. Pt was maintained with safety and isolation precautions all shift. Pt next to nurses' station all shift for needs and care. Pt stable - no needs noted at this time. Call light within reach. Pt was given frequent hygiene care for urine incontinence all shift. Pt's bed in low position and bed alarm on all shift.
[2020-06-15 21:15] VITALS: BP_SYST 142
[2020-06-15] MEDS: MIRTAZAPINE 15 MG TABLET PO SCH (21:43)
[2020-06-15] MEDS: ATORVASTATIN 20 MG TABLET PO SCH (21:43)
--- NOTE | 2020-06-15 21:44 | NUR ---
MED PASS PT COOPERATIVE IN TAKING HIS MEDICATIONS AT THIS TIME. ASPIRATION PRECAUTIONS MAINTAINED. WILL MONITOR.
--- NOTE | 2020-06-15 23:08 | NUR ---
ACCUCHECK BLOOD SUGAR OF 130, NO INSULIN COVERAGE INDICATED PER SLIDING SCALE.
[2020-06-16] VITALS: BP_SYST 150
[2020-06-16] MEDS: HALOPERIDOL LACTATE 5 MG/ML VIAL IM PRN (00:05)
[2020-06-16 08:00] VITALS: BP_SYST 115
[2020-06-16] MEDS: QUEtiapine FUMARATE 100 MG TABLET PO SCH ×3 (08:00→20:49)
--- NOTE | 2020-06-16 08:00 | NUR ---
Note Pt resting in bed - no SOB/resp distress or pain/discomfort noted at this time. IV in KAPIL intact and patent infusing IVF's well. Bed in low position and bed alarm on. Pt drowsy and refuses food/drink at this time. Call light within reach.
[2020-06-16] MEDS: ASPIRIN 81 MG TAB.CHEW PO SCH (08:30)
--- NOTE | 2020-06-16 08:30 | NUR ---
Note Dr Cooper on the floor to assess pt and check labs/tests. Dr Atkinson at pt's bedside assessing pt. Dr Atkinson stated he would call pt's family and see if GT/PEG placement would be something the family wanted or would consent to.
[2020-06-16] MEDS: MULTIVITAMINS TAB 1 TABLET PO SCH (08:31)
[2020-06-16] MEDS: FUROSEMIDE 20 MG TABLET PO SCH (08:31)
[2020-06-16] MEDS: DIVALPROEX SODIUM 250 MG TABLET(DEPAKOTE) PO SCH ×3 (08:31→20:49)
[2020-06-16] MEDS: TAMSULOSIN HCL 0.4 MG CAP PO SCH (08:31)
[2020-06-16] MEDS: METOPROLOL SUCCINATE 25 MG TAB.SR.24H (TOPROL XL) PO SCH ×2 (08:32→20:49)
[2020-06-16] MEDS: CLOPIDOGREL BISULFATE 75 MG TABLET PO SCH (08:32)
[2020-06-16] MEDS: ENOXAPARIN SODIUM 30 MG/0.3 ML SYRINGE SUBCUT SCH (09:06)
--- NOTE | 2020-06-16 11:15 | NUR ---
Note Pt asleep and no needs noted at this time. IVF's infusing well through KAPIL IV site. Call light within reach.
[2020-06-16 12:00] VITALS: BP_SYST 120
[2020-06-16] MEDS: NACL 0.9% 1,000 ML IV SCH (14:14)
--- NOTE | 2020-06-16 14:25 | NUR ---
Note Pt asleep at this time. IVF's infusing through KAPIL IV site. No needs noted at this time. Call light within reach.
[2020-06-16 16:41] VITALS: BP_SYST 118
--- NOTE | 2020-06-16 18:20 | NUR ---
Note Pt drowsy and sleepy at this time. No SOB/resp distress or pain/discomfort noted at this time. Pt's IV in KAPIL intact and patent infusing IVF's well. Pt refuses any food/drink all shift. Pt was given frequent hygiene care for urine incontinence. Pt's bed alarm and bed in low position all shift. Pt was checked on q1' and PRN all shift for needs and care. Pt was maintained with safety precautions all shift. No needs noted at this time. Call light within reach.
--- NOTE | 2020-06-16 19:30 | NUR ---
OPENING NOTES: Received report from dayshift nurse. Patient is laying in bed awake and alert to name. He appears has flat affect and is withdrawn. IV noted on KAPIL with dry dressing. Ensured all safety precautions. Bed is locked and in the lowest position, call light within reach.
[2020-06-16 20:00] VITALS: BP_SYST 143
--- NOTE | 2020-06-16 20:45 | NUR ---
MEDICATION ADMINISTRATION: Attempted to administer medications as ordered by physician. Patient declined to take Metoprolol and Lipitor however I was able to give other meds with apple sauce, he tolerated well. Will continue to monitor patient.
[2020-06-16] MEDS: MIRTAZAPINE 15 MG TABLET PO SCH (20:48)
[2020-06-16] MEDS: ATORVASTATIN 20 MG TABLET PO SCH (20:48)
[2020-06-17] VITALS: BP_SYST 133
--- NOTE | 2020-06-17 | NUR ---
RN ROUNDS / VITALS: Patient is laying in bed and is confused and agitated. I attempted to perform accucheck but patient refused. He crossed his arms and yelled "don't touch me". Patient agreed to let me take his vitals. Will continue to monitor patient.
[2020-06-17] MEDS: HALOPERIDOL LACTATE 5 MG/ML VIAL IM PRN (01:00)
--- NOTE | 2020-06-17 01:00 | NUR ---
HALDOl GIVEN: Patient continues to be very agitated despite my attempts to re-orient patient. He is pulling on his IV and removing gown. I have administered Haldol as ordered by . Pt tolerated well.
[2020-06-17] MEDS: NACL 0.9% 1,000 ML IV SCH (03:15)
--- NOTE | 2020-06-17 04:00 | NUR ---
RN ROUNDS: Patient is laying in bed and appears to be calm. He is not exhibiting any s/s of distress or discomfort. Will continue to monitor.
--- NOTE | 2020-06-17 06:53 | NUR ---
CLOSING NOTES: Patient is laying in bed awake and alert to name. IV on KAPIL patent and intact. Patient was combative at times but was able to reorient. All needs were met throughout shift. Ensured all safety precautions. Bed is locked and in the lowest position, call light within reach. Will endorse to dayshift nurse.
[2020-06-17 06:54] LABS: BASOPHILS % (AUTO) 0.2 % (0.0-2.0); EOSINOPHILS % (AUTO) 0.2 % (0.0-4.0); HEMATOCRIT 41.9 % (36-54); HEMOGLOBIN 13.5 g/dL (14.0-18.0); LYMPHOCYTES # (AUTO) 0.3 K/uL (1.0-5.5); LYMPHOCYTES % (AUTO) 4.2 % (20.5-51.5); MEAN CORPUSCULAR HEMOGLOBIN 28 pg (27-31); MEAN CORPUSCULAR HGB CONC 32 % (32-36); MEAN CORPUSCULAR VOLUME 87 fL (79.0-98.0); MONOCYTES # (AUTO) 0.3 K/uL (0.0-1.0); MONOCYTES % (AUTO) 5.6 % (1.7-9.3); NEUTROPHILS # (AUTO) 5.5 K/uL (1.8-7.7); NEUTROPHILS % (AUTO) 89.8 % (40.0-70.0); PLATELET COUNT (AUTO) 63 K/uL (130-430); RED BLOOD CELL COUNT(AUTO) 4.84 MIL/uL (4.2-6.2); RED CELL DISTRIBUTION WIDTH 21.4 % (9.0-15.0); WHITE BLOOD COUNT (AUTO) 6.1 K/uL (4.8-10.8)
[2020-06-17 07:12] LABS: ALANINE AMINOTRANSFERASE 35 U/L (12-78); ANION GAP 12 (5-15); ASPARTATE AMINOTRANSFERASE 34 U/L (10-37); CALCIUM 8.4 mg/dL (8.4-11.0); CHLORIDE 110 mmol/L (98-107); CREATININE 0.62 mg/dL (0.55-1.30); GLUCOSE 117 mg/dL (70-99); POTASSIUM 3.4 mmol/L (3.5-5.1); SODIUM SERUM 151 mmol/L (136-145); TOTAL BILIRUBIN 0.9 mg/dL (0.0-1.0); UREA NITROGEN, BLOOD 11 mg/dL (8-21)
[2020-06-17] MEDS: QUEtiapine FUMARATE 100 MG TABLET PO SCH ×3 (08:00→21:00)
[2020-06-17 08:15] VITALS: BP_SYST 134
--- NOTE | 2020-06-17 08:15 | NUR ---
OPENING NOTES, RECEIVED PT IN BED, PT IS AAOX1, NO S/S OF PAIN. NO SOB.NO FEVER. OFFERED BREAKFAST. PT REFUSED.
[2020-06-17] MEDS: MULTIVITAMINS TAB 1 TABLET PO SCH (09:00)
[2020-06-17] MEDS: DIVALPROEX SODIUM 250 MG TABLET(DEPAKOTE) PO SCH ×3 (09:00→21:00)
[2020-06-17] MEDS: FUROSEMIDE 20 MG TABLET PO SCH (09:00)
[2020-06-17] MEDS: TAMSULOSIN HCL 0.4 MG CAP PO SCH (09:00)
[2020-06-17] MEDS: ASPIRIN 81 MG TAB.CHEW PO SCH (09:00)
[2020-06-17] MEDS: METOPROLOL SUCCINATE 25 MG TAB.SR.24H (TOPROL XL) PO SCH ×2 (09:00→21:00)
[2020-06-17] MEDS: CLOPIDOGREL BISULFATE 75 MG TABLET PO SCH (09:00)
[2020-06-17] MEDS: ENOXAPARIN SODIUM 30 MG/0.3 ML SYRINGE SUBCUT SCH (09:41)
--- NOTE | 2020-06-17 10:00 | NUR ---
PT REFUSED TO EAT AND TAKE AM MEDS.
[2020-06-17 12:00] VITALS: BP_SYST 136
--- NOTE | 2020-06-17 12:20 | NUR ---
PT'S DAUGHTER JESICA SAID THEY WANT TO GO AHEAD WITH PEG PLACEMENT, STATED THAT SHE CALL DR ARZOLA AND LEFT MESSAGE. WILL INFORM DR ARZOLA.
[2020-06-17] MEDS: D5W 1,000 ML IV SCH (12:33)
--- NOTE | 2020-06-17 12:52 | NUR ---
Spoke neil Machado at [facility]-[phone]-she agreed to accept patient-she needs repeat covid before accepting the patient. Covid rapid ordered
--- NOTE | 2020-06-17 15:00 | NUR ---
PATIENT REFUSED PM MEDS. OFFERED SNACKS AND WATER. PT REFUSED.
[2020-06-17 17:30] VITALS: BP_SYST 125
[2020-06-17] MEDS: INSULIN REGULAR, HUMAN 100 UNITS/ML, 10 ML VIAL (humuLIN R) SUBCUT PRN (17:35)
--- NOTE | 2020-06-17 18:12 | NUR ---
Nutrition F/U Admitting Diagnosis: COVID positive/dehydration Medical History Comment: PMH: psych disorder, HTN per physician notes 06/14 MD notes: Dementia SARS-CoV-2 (PCR) Positive 06/01, Positive 06/09 SARS-CoV-2 Ag Positive 06/01 Subjective Information: Per EMR review, pt has consistently been eating poorly, and family has agreed to have PEG placement. Physician has documented FTT. Pt is not meeting nutritional needs. Current Diet Order/Nutrition Support: CCHO w/ Glucerna TID x13 days Pertinent Medications: seroquel, lasix, Lovenox, MVI, Remeron, Lipitor, haldol Pertinent Labs: BG 117 H (trending down), POC BG 141 H 06/14, ALB 2 L Skin Integrity Comment: Hiram scale: 15; per [employer] Technician note 06/02: 1. Left Distal Posterior Forearm: Skin tear, present on admission. 2. Right Distal Posterior Forearm: Skin tear, present on admission. 3. Right dorsal Hand: Skin tear, present on admission. 4. Left Upper Extremity: Multiple areas of dark discolored ecchymosis, present on admission. 5. Right Forearm: Multiple dry scabs, present on admission. 6. Left barnes: Multiple dry scabs, present on admission. 7. Right barnes: Large dry scab, present on admission. 8. Left lateral hip: Large area of purple ecchymosis, present on admission. Current % PO 0% x8 meals w/ refusals noted Estimated Energy Expenditure (kcals/day) 6420-5093 kcal/day (30-35 kcal/kg CBW for acute state) Estimated Protein Required (g/day) 79-99 gm/day (1.2-1.5 gm/kg CBW for acute state) Estimated Fluid Required (l/day) 2-2.3 L/day (1 ml/kcal/day for maintenance) Problem/Etiology/Signs/Symptoms Inadequate nutritional intakes related to metabolic demands as evidenced by inability to meet estimated nutritional requirements for acute state w/ current negligible PO intakes. *ongoing Expected Outcomes/Goals - Monitor appetite and PO intakes, provision of nutrition support w/ goal of pt meeting at least 50% of estimated nutritional needs, labs trending WNL, normal GI function, and skin integrity/wt maintenance Dietitian Recommendations * Consider EN support via NGT per FLAT EXAMINER recommendation * Recommend continuing CCHO diet w/ Glucerna TID (ONS provides an additional 660 kcal/day, 30 gm protein/day) * Encourage increase PO intake during meal times Follow Up High Risk: F/U in 2-3 days
--- NOTE | 2020-06-17 18:15 | NUR ---
Dietitian Recommendations * Consider EN support via NGT per BOX INSPECTOR recommendation * Recommend continuing CCHO diet w/ Glucerna TID (ONS provides an additional 660 kcal/day, 30 gm protein/day) * Encourage increase PO intake during meal times LP, RD Please refer to Nutrition F/U for details.
--- NOTE | 2020-06-17 18:40 | NUR ---
PT'S DAUGHTER DIANE GAVE CONSENT FOR PEG TUBE PLACEMENT, TEL CONSENT VERIFIED WITH DENNIS SKINNER.
--- NOTE | 2020-06-17 19:30 | NUR ---
OPENING NOTES: Patient is laying in bed awake and alert to name. IV on KAPIL patent and intact. He is incontinent. Bed is locked and in the lowest position, call light within reach.
[2020-06-17 20:00] VITALS: BP_SYST 124
[2020-06-17] MEDS: ATORVASTATIN 20 MG TABLET PO SCH (21:00)
[2020-06-17] MEDS: MIRTAZAPINE 15 MG TABLET PO SCH (21:00)
--- NOTE | 2020-06-17 21:53 | NUR ---
RESTLESS AND TRYING TO GET OFF BED: Spoke with Dr. Chirinos and informed him that patient is restless and attempting to get out of bed. He is also confused. Per Dr. Chirinos he increased the dose of Haldol to 5 mg IM as a one time order to be given now. Will administer as soon as available. Per Dr. Chirinos avoid restraints for patient.
--- NOTE | 2020-06-17 21:57 | NUR ---
ORDER CONFIRMED: HIGH ALERT NOTE: Called Dr. Chirinos back at [phone] identified within the medical roster to verify physician authenticity. Dr. Chirnios is aware that patient is not on TELE and he states he does not need to be because medication is given IM.
[2020-06-17] MEDS ORDERED: HALOPERIDOL LACTATE 5 MG/ML VIAL IM ONE (22:00)
--- NOTE | 2020-06-17 22:15 | NUR ---
MEDICATION ADMINISTRATION: Patient refused to take all meds and is very agitated. He is attempting to hit. I reoriented patient and administered Haldol as ordered by MD. Patient tolerated well.
[2020-06-18] VITALS: BP_SYST 147
--- NOTE | 2020-06-18 | NUR ---
RN ROUNDS / VITALS: Patient is laying in bed, awake and confused. He is in stable condition without s/s of distress or discomfort. Bed is lowest position with alarm on, call light within reach. Will continue to monitor patient.
[2020-06-18] MEDS: D5W 1,000 ML IV SCH ×2 (05:00→21:00)
--- NOTE | 2020-06-18 07:08 | NUR ---
CLOSING NOTES: Patient is laying in bed awake and alert to name. IV on KAPIL patent and intact. Patient was combative at times but was able to reorient. Patient refused meds and refused to eat or drink. Has been NPO since midnight in preparation for PEG this morning. All needs were met throughout shift. Ensured all safety precautions. Bed is locked and in the lowest position, call light within reach. Will endorse to dayshift nurse.
[2020-06-18] MEDS ORDERED: CEFAZOLIN 1 GM IVPB PREMIX 50 ML IV ONE (07:30)
[2020-06-18 07:43] LABS: BASOPHILS % (AUTO) 0.5 % (0.0-2.0); EOSINOPHILS % (AUTO) 0.8 % (0.0-4.0); HEMATOCRIT 39.7 % (36-54); HEMOGLOBIN 12.9 g/dL (14.0-18.0); LYMPHOCYTES # (AUTO) 0.7 K/uL (1.0-5.5); MEAN CORPUSCULAR HEMOGLOBIN 28 pg (27-31); MEAN CORPUSCULAR HGB CONC 33 % (32-36); MEAN CORPUSCULAR VOLUME 86 fL (79.0-98.0); MONOCYTES # (AUTO) 0.4 K/uL (0.0-1.0); MONOCYTES % (AUTO) 7.4 % (1.7-9.3); NEUTROPHILS # (AUTO) 4.8 K/uL (1.8-7.7); NEUTROPHILS % (AUTO) 80.3 % (40.0-70.0); RED BLOOD CELL COUNT(AUTO) 4.64 MIL/uL (4.2-6.2); RED CELL DISTRIBUTION WIDTH 21.2 % (9.0-15.0); WHITE BLOOD COUNT (AUTO) 5.9 K/uL (4.8-10.8)
[2020-06-18] MEDS: QUEtiapine FUMARATE 100 MG TABLET PO SCH ×3 (07:45→21:00)
[2020-06-18] MEDS: DIVALPROEX SODIUM 250 MG TABLET(DEPAKOTE) PO SCH ×2 (07:45→21:00)
[2020-06-18] MEDS: TAMSULOSIN HCL 0.4 MG CAP PO SCH (07:45)
[2020-06-18] MEDS: ASPIRIN 81 MG TAB.CHEW PO SCH (07:45)
[2020-06-18] MEDS: FUROSEMIDE 20 MG TABLET PO SCH (07:45)
[2020-06-18] MEDS: MULTIVITAMINS TAB 1 TABLET PO SCH (07:45)
[2020-06-18] MEDS: CLOPIDOGREL BISULFATE 75 MG TABLET PO SCH (07:46)
[2020-06-18] MEDS: METOPROLOL SUCCINATE 25 MG TAB.SR.24H (TOPROL XL) PO SCH ×2 (07:46→21:00)
[2020-06-18 07:49] LABS: PLATELET COUNT (AUTO) 49 K/uL (130-430)
--- NOTE | 2020-06-18 07:50 | NUR ---
GI lab called and stated that ordered 40MEQ of potassium k-rider [id number]/[id number] to run for 4 hrs, once completed patient can have peg placement procedure. I will put in the order. Potassium was 2.7.
--- NOTE | 2020-06-18 07:50 | NUR ---
Abnormal: Abnormal lab of plt 49 was called in from lab, was paged, waiting for orders.
[2020-06-18 08:00] VITALS: BP_SYST 116
[2020-06-18] MEDS: ENOXAPARIN SODIUM 30 MG/0.3 ML SYRINGE SUBCUT SCH (08:00)
--- NOTE | 2020-06-18 08:00 | NUR ---
Opening notes: Patient is sleeping, does not alert or oriented. Not showing any signs of distress on RA at this time. Using FLACC score test, does not seem in pain. Patient KAPIL 20G IV line is patent and running D5@60ML/HR. Patient is incontinent, will be routinely changed. An abnormal lab came back for plt of 49, was paged, waiting for orders. Patient is NPO today for pending PEG placement today. I got a full report from pm nurse. Bed is low, locked, 2 side rails are up and call light is within reach.
[2020-06-18 08:15] LABS: ALANINE AMINOTRANSFERASE 25 U/L (12-78); ALBUMIN 1.8 g/dL (3.4-4.8); ANION GAP 8 (5-15); ASPARTATE AMINOTRANSFERASE 27 U/L (10-37); CALCIUM 8.2 mg/dL (8.4-11.0); CHLORIDE 109 mmol/L (98-107); CREATININE 0.58 mg/dL (0.55-1.30); GLUCOSE 153 mg/dL (70-99); SODIUM SERUM 145 mmol/L (136-145); TOTAL BILIRUBIN 0.8 mg/dL (0.0-1.0); UREA NITROGEN, BLOOD 9 mg/dL (8-21)
[2020-06-18 08:22] LABS: POTASSIUM 2.7 mmol/L (3.5-5.1)
[2020-06-18 08:42] LABS: INR 1.2 (0.80-1.20); PROTHROMBIN TIME 12.7 SECS (9.5-12.5)
[2020-06-18] MEDS ORDERED: POTASSIUM CHLORIDE 40 MEQ in D5W 250 ML IV ONE (09:00)
[2020-06-18] MEDS ORDERED: MEPERIDINE HCL/PF 100 MG/ML AMP ONE (09:07)
[2020-06-18] MEDS ORDERED: fentaNYL CITRATE/PF 100 MCG/2 ML AMP ONE (09:07)
--- NOTE | 2020-06-18 09:27 | NUR ---
Hematology consult called: for Dr. Christianson, regarding thombocytopenia, ordered by Dr. Chirinos, spoke with Minnie.
--- NOTE | 2020-06-18 10:11 | NUR ---
Needs were met, patient breathing well and not showing any signs of distress. Bed is low, locked, 2 side rails are up and call light is within reach.
[2020-06-18 12:00] VITALS: BP_SYST 129
[2020-06-18] MEDS: MIDAZOLAM HCL 5 MG/5 ML VIAL ONE ×2 (13:45→13:47)
[2020-06-18] MEDS ORDERED: NALOXONE HCL 2 MG/2 ML SYR ONE (14:00)
[2020-06-18] MEDS ORDERED: FLUMAZENIL 0.1 MG/ML IVP ONE ×2 (14:02→15:22)
[2020-06-18] MEDS ORDERED: NALOXONE HCL 2 MG/2 ML SYR (NARCAN) IV ONE (15:22)
[2020-06-18] MEDS ORDERED: NACL 0.9% 1,000 ML IV ONE (15:45)
[2020-06-18 16:00] VITALS: BP_SYST 134
--- NOTE | 2020-06-18 16:30 | NUR ---
Patient had peg placement completed, patient did not do well on fentanyl, BP and RR dropped, narcan and romanzicon were given, BP and RR stabilized, patient responded well. Vitals remained stable.
--- NOTE | 2020-06-18 19:07 | NUR ---
Closing notes: Patient is sleeping, does not alert or oriented. Not showing any signs of distress on RA at this time. Using FLACC score test, does not seem in pain. Patient KAPIL 20G IV line is patent and running D5@60ML/HR. Patient is incontinent, was routinely changed. Plt are low, potassium was low, I got orders from to replace potassium before peg placement. Patient is NPO was NPO before peg placement. I will give a report to the machine inspector nurse. Bed is low, locked, 2 side rails are up and call light is within reach.
[2020-06-18] MEDS: ATORVASTATIN 20 MG TABLET PO SCH (21:00)
[2020-06-18] MEDS: MIRTAZAPINE 15 MG TABLET PO SCH (21:00)
[2020-06-18] MEDS: HALOPERIDOL LACTATE 5 MG/ML VIAL IM PRN (23:41)
--- NOTE | 2020-06-18 23:42 | NUR ---
RN ROUNDS: Patient is laying in bed, confused. He was removed abdominal binder and was attempting to pull on PEG. I have reoriented patient and attempted to educate about not pull on PEG. He said okay but is very agitated. I have administered Haldol as ordered. Will monitor patient on camera to ensure he does not continue to attempt to pull out PEG.
[2020-06-19] VITALS (16 sets, daily range): BP systolic 80–168
--- NOTE | 2020-06-19 05:00 | NUR ---
PAGED PAGED DOCTOR LIBIA
--- NOTE | 2020-06-19 05:25 | NUR ---
PAGED PAGED DOCTOR NICHOLE
--- NOTE | 2020-06-19 05:30 | NUR ---
RN ROUNDS / CHANGE IN CONDITION: Patient was found in bed with SOB, diminished breath sounds, and rhonchi. Paged RT to help suction patient. RT extracted about 30 ml's of mucus via nose. Patient's O2 was at 76% BP 124/60 RR 14. Patient was placed on a non rebreather mask at 15 L after he was not able to tolerate nasal canula or simple mask. Pitting edema x2 was also noted on all extremities. Paged pulmonology and spoke with Dr. Carnes and informed him of patient status. Dr Carnes gave a 1 time order for Lasix, also CXR, and Zosyn per pharmacy protocol. All orders have been entered. In addition, Dr. Carnes ordered for IV fluids to be stopped.
[2020-06-19] MEDS ORDERED: FUROSEMIDE 40 MG/4 ML VIAL IVP ONE (05:45)
[2020-06-19] MEDS: PIPERACILLIN/TAZO 3.375/DEX-IS 50 ML IV SCH ×4 (06:00→23:50)
[2020-06-19] MEDS ORDERED: PIPERACILLIN/TAZO 3.375/DEX-IS 50 ML IV SCH (06:00)
[2020-06-19] MEDS ORDERED: PIPERACILLIN/TAZOBACTAM 3.375 GM/VIAL (ZOSYN) IV ONE (06:24)
--- NOTE | 2020-06-19 07:45 | NUR ---
Opening Notes/Combative/Desaturation/Intermittent Seizures/Ativan 0.5 mg IVP Patient is laying in bed, difficult to arouse. Alert and oriented x1. Patient is agitated, noted attempting to hit staff. Patient is noted with abdominal breathing, desaturating on oximizer @ 10 LPM, noted at 76%-84%. Respiratory was called to room. Patient was suctioned as needed. Placed patient on oximizer at 15 LPM, tolerating well. Patient is also noted with intermittent seizures, lasting about 15-20 seconds each. IV site noted on right upper arm, 20 gauge flushing well at this time. Patient was given Ativan 0.5 mg IVP for agitation. Rapid response was called for patient due to change of condition and seizures. Nurse called Dr. Chirinos for further orders.
--- NOTE | 2020-06-19 08:15 | NUR ---
TRANSFER TO ICU Obtained new orders to transfer patient to ICU, will go to room 127B.
[2020-06-19] MEDS: DIVALPROEX SODIUM 250 MG TABLET(DEPAKOTE) PO SCH ×3 (09:00→22:03)
[2020-06-19] MEDS: MULTIVITAMINS TAB 1 TABLET PO SCH (09:00)
[2020-06-19] MEDS: ASPIRIN 81 MG TAB.CHEW PO SCH (09:00)
[2020-06-19] MEDS: METOPROLOL SUCCINATE 25 MG TAB.SR.24H (TOPROL XL) PO SCH ×2 (09:00→22:04)
[2020-06-19] MEDS: TAMSULOSIN HCL 0.4 MG CAP PO SCH (09:00)
[2020-06-19] MEDS: FUROSEMIDE 20 MG TABLET PO SCH (09:00)
[2020-06-19] MEDS: CLOPIDOGREL BISULFATE 75 MG TABLET PO SCH (09:00)
--- NOTE | 2020-06-19 09:00 | NUR ---
Gave report to DENNIS Valdez for continuity of care.
--- NOTE | 2020-06-19 09:20 | NUR ---
Pulmo consult: Called Dr. Simon nurse Kiera now speaking with Dr. Simon
--- NOTE | 2020-06-19 10:30 | NUR ---
ICU Opening Note Received patient from [facility] resting in bed, on nasal cannula, no signs or symptoms of acute distress noted. Received bedside report from Kiera [facility] RN for continuation of care. All needs met.
--- NOTE | 2020-06-19 11:22 | NUR ---
Dr. Chirinos in to see patient. New orders received.
[2020-06-19] MEDS ORDERED: IPRATROPIUM BROM 0.5 MG/2.5 ML VIAL.NEB (ATROVENT) INH PRN (11:30)
[2020-06-19] MEDS ORDERED: NOREPINEPHRINE BITARTRATE 4 MG in NS 246 ML IV PRN (11:30)
[2020-06-19] MEDS ORDERED: ALBUTEROL SULFATE 0.083% 2.5 MG/3 ML VIAL.NEB INH PRN (11:30)
--- NOTE | 2020-06-19 12:15 | NUR ---
Dr. Lesterrees in to see patient. No new orders.
[2020-06-19 12:26] LABS: ANION GAP 7 (5-15); CALCIUM 8.4 mg/dL (8.4-11.0); CHLORIDE 107 mmol/L (98-107); CREATININE 0.63 mg/dL (0.55-1.30); GLUCOSE 133 mg/dL (70-99); SODIUM SERUM 142 mmol/L (136-145); UREA NITROGEN, BLOOD 9 mg/dL (8-21)
[2020-06-19 12:32] LABS: ALANINE AMINOTRANSFERASE 19 U/L (12-78); ALBUMIN 1.6 g/dL (3.4-4.8); ASPARTATE AMINOTRANSFERASE 36 U/L (10-37); TOTAL BILIRUBIN 0.8 mg/dL (0.0-1.0)
[2020-06-19 12:35] LABS: POTASSIUM 3.6 mmol/L (3.5-5.1)
[2020-06-19 13:03] LABS: BASOPHILS % (AUTO) 0.2 % (0.0-2.0); EOSINOPHILS % (AUTO) 0.3 % (0.0-4.0); HEMATOCRIT 38.2 % (36-54); HEMOGLOBIN 12.2 g/dL (14.0-18.0); LYMPHOCYTES # (AUTO) 0.6 K/uL (1.0-5.5); LYMPHOCYTES % (AUTO) 7.8 % (20.5-51.5); MEAN CORPUSCULAR HEMOGLOBIN 28 pg (27-31); MEAN CORPUSCULAR HGB CONC 32 % (32-36); MEAN CORPUSCULAR VOLUME 87 fL (79.0-98.0); MONOCYTES # (AUTO) 0.6 K/uL (0.0-1.0); MONOCYTES % (AUTO) 8.4 % (1.7-9.3); NEUTROPHILS # (AUTO) 6.3 K/uL (1.8-7.7); NEUTROPHILS % (AUTO) 83.3 % (40.0-70.0); PLATELET COUNT (AUTO) 51 K/uL (130-430); RED BLOOD CELL COUNT(AUTO) 4.41 MIL/uL (4.2-6.2); RED CELL DISTRIBUTION WIDTH 21.2 % (9.0-15.0); WHITE BLOOD COUNT (AUTO) 7.6 K/uL (4.8-10.8)
[2020-06-19 13:16] LABS: INR 1.2 (0.80-1.20); PROTHROMBIN TIME 12.7 SECS (9.5-12.5)
[2020-06-19] MEDS: QUEtiapine FUMARATE 25 MG TABLET GT SCH ×2 (15:00→21:00)
[2020-06-19] MEDS ORDERED: ALBUTEROL SULFATE 0.083% 2.5 MG/3 ML VIAL.NEB INH SCH (15:00)
--- NOTE | 2020-06-19 15:16 | NUR ---
Dr. Simon at bedside examining patient. New orders received.
[2020-06-19] MEDS ORDERED: ALBUTEROL MDI INHALATION 8 GM INH INH PRN (15:40)
[2020-06-19] MEDS ORDERED: QUEtiapine FUMARATE 25 MG TABLET ONE (15:51)
--- NOTE | 2020-06-19 18:46 | NUR ---
CHG Patient incontinent. Pericare done and bed linens changed. Patient cleaned, turned, and repositioned. No signs or symptoms of acute distress noted.
--- NOTE | 2020-06-19 18:47 | NUR ---
PICC Line Insertion PICC Line insertion being done at bedside by PICC RN José Miguel.
--- NOTE | 2020-06-19 19:27 | NUR ---
Closing Note Endorsed bedside report to oncoming RN using SBAR approach for continuation of care.
--- NOTE | 2020-06-19 19:35 | NUR ---
Late Entry due to patient care: Report received from day shift nurse. Pt was received lying in bed lethargic. Pt is on oxygen at 5L/min via Oxymizer and oxygen saturation is 98%. Levophed drip is infusing well via VÍCTOR PICC at 0.03mcg/kg/min. G Tube is clamped and residual 0ml. Pt is non-verbal. Skin is warm and dry to touch. No signs or symptoms of hypoglycemia or hyperglycemia noted. Fall, droplet isolation and safety precautions are in place.
[2020-06-19] MEDS: MIRTAZAPINE 15 MG TABLET GT SCH (22:03)
[2020-06-19] MEDS: ATORVASTATIN 20 MG TABLET PO SCH (22:04)
--- NOTE | 2020-06-19 22:30 | NUR ---
G tube feeding of Jevity 1.2 started at 40ml/hr. HOB elevated 45 degrees to prevent aspiration.
--- NOTE | 2020-06-19 23:00 | NUR ---
Pt was transferred from Room 127 (ICU-10) to Room ICU 6 via bed in stable condition.
--- NOTE | 2020-06-19 23:50 | NUR ---
Accucheck 143 and no Insulin coverage needed. Skin remains warm and dry to touch. GTF of Jevity 1.2 is infusing well at 40ml/hr.
[2020-06-20] VITALS (24 sets, daily range): BP systolic 69–156
--- NOTE | 2020-06-20 00:10 | NUR ---
Levophed drip discontinued.
--- NOTE | 2020-06-20 02:00 | NUR ---
Pt is tolerating GT Feeding well. HOB remains elevated 45 degrees.
--- NOTE | 2020-06-20 02:00 | NUR ---
Pt desaturating onto the 80's. Pt sounded very congested. Oral suctioning attempted by RN, but pt remains congested. Deep tracheal suctioning done by RT and moderate amount of thick whitish sputum aspirated. Addendum: 06/20/20 at 0625 by Kerrie Matias RN Please disregard. Wrong entry.
--- NOTE | 2020-06-20 03:05 | NUR ---
Oxymizer reduced to 3L/min by RT.
--- NOTE | 2020-06-20 03:05 | NUR ---
Called to Pt. room to assess for NT suctioning. Pt. found on NRB with SpO2 reading 86%, presenting with very wet cough, unable to spontaneously expectorate. Pt. deep suctioned through right nare, large amount of thick, dark yellow secretions cleared. Pt. now on Oxymizer @3Lpm with saturation of 96%.
--- NOTE | 2020-06-20 05:00 | NUR ---
Pt is tolerating GTF well. No acute respiratory distress noted.
[2020-06-20] MEDS: PIPERACILLIN/TAZO 3.375/DEX-IS 50 ML IV SCH ×4 (05:32→23:57)
--- NOTE | 2020-06-20 05:44 | NUR ---
Accucheck 144 and no Insulin coverage needed. Skin remains warm and dry to touch. GTF of Jevity 1.2 is infusing well at 40ml/hr.
[2020-06-20 06:41] LABS: BASOPHILS % (AUTO) 0.1 % (0.0-2.0); EOSINOPHILS # (AUTO) 0.1 K/uL (0.0-0.4); HEMATOCRIT 40.5 % (36-54); HEMOGLOBIN 12.8 g/dL (14.0-18.0); LYMPHOCYTES # (AUTO) 0.8 K/uL (1.0-5.5); LYMPHOCYTES % (AUTO) 8.6 % (20.5-51.5); MEAN CORPUSCULAR HEMOGLOBIN 28 pg (27-31); MEAN CORPUSCULAR HGB CONC 32 % (32-36); MEAN CORPUSCULAR VOLUME 87 fL (79.0-98.0); MONOCYTES # (AUTO) 0.7 K/uL (0.0-1.0); MONOCYTES % (AUTO) 7.6 % (1.7-9.3); NEUTROPHILS # (AUTO) 7.9 K/uL (1.8-7.7); NEUTROPHILS % (AUTO) 82.7 % (40.0-70.0); PLATELET COUNT (AUTO) 53 K/uL (130-430); RED BLOOD CELL COUNT(AUTO) 4.63 MIL/uL (4.2-6.2); RED CELL DISTRIBUTION WIDTH 21.1 % (9.0-15.0); WHITE BLOOD COUNT (AUTO) 9.6 K/uL (4.8-10.8)
[2020-06-20 07:07] LABS: ANION GAP 7 (5-15); CALCIUM 8.3 mg/dL (8.4-11.0); CHLORIDE 105 mmol/L (98-107); CREATININE 0.64 mg/dL (0.55-1.30); GLUCOSE 156 mg/dL (70-99); SODIUM SERUM 143 mmol/L (136-145); UREA NITROGEN, BLOOD 8 mg/dL (8-21)
--- NOTE | 2020-06-20 07:30 | NUR ---
Opening Note Received bedside report from endorsing RN for continuation of care. Received patient resting in bed, no signs or symptoms of acute distress noted. Bed locked in lowest position, bed alarm on, and all light within reach. Fall and safety precautions in place.
--- NOTE | 2020-06-20 08:43 | NUR ---
Dr. Atkinson at bedside examining patient. New orders received.
[2020-06-20] MEDS: QUEtiapine FUMARATE 25 MG TABLET GT SCH ×3 (09:00→21:00)
--- NOTE | 2020-06-20 09:07 | NUR ---
Family Update Spoke with patient's daughter Leni on the phone regarding patient status and plan of care. All questions answered and education provided.
[2020-06-20] MEDS: DIVALPROEX SODIUM 250 MG TABLET(DEPAKOTE) PO SCH ×3 (09:39→21:18)
[2020-06-20] MEDS: MULTIVITAMINS TAB 1 TABLET PO SCH (09:39)
[2020-06-20] MEDS: ASPIRIN 81 MG TAB.CHEW PO SCH (09:39)
[2020-06-20] MEDS: TAMSULOSIN HCL 0.4 MG CAP PO SCH (09:39)
[2020-06-20] MEDS: FUROSEMIDE 20 MG TABLET PO SCH (09:39)
[2020-06-20] MEDS: CLOPIDOGREL BISULFATE 75 MG TABLET PO SCH (09:39)
[2020-06-20] MEDS: METOPROLOL SUCCINATE 25 MG TAB.SR.24H (TOPROL XL) PO SCH ×2 (09:39→21:21)
[2020-06-20] MEDS ORDERED: KCL 40 mEq in 100 mL (PREMIX) 100 ML IV ONE (10:15)
--- NOTE | 2020-06-20 11:05 | NUR ---
Dr. Chirinos in to see patient. New orders received.
[2020-06-20] MEDS: INSULIN REGULAR, HUMAN 100 UNITS/ML, 10 ML VIAL (humuLIN R) SUBCUT PRN ×2 (12:21→17:20)
--- NOTE | 2020-06-20 13:08 | NUR ---
Dr. Alexis Cortes in to see patient. No new orders. Addendum: 06/20/20 at 1407 by Aleisha Humphries RN New orders received.
[2020-06-20] MEDS ORDERED: ACETYLCYSTEINE 10% 4 ML VIAL (RT) INH ONE (14:00)
--- NOTE | 2020-06-20 14:07 | NUR ---
Dr. Simon at bedside examining patient. New orders received.
--- NOTE | 2020-06-20 14:15 | NUR ---
Dr. Lesterrees in to see patient. No new orders.
--- NOTE | 2020-06-20 14:16 | NUR ---
CHG Patient incontinent. Pericare done and bed linens changed. Patient cleaned, turned, and repositioned. No signs or symptoms of acute distress noted.
--- NOTE | 2020-06-20 14:30 | NUR ---
HANNON CATH: # 16 FR Hannon catheter with 10 cc bulb inserted with use of sterile technique. Bulb inflated with 10 cc sterile water. Immediate return of 50 cc xuan urine noted. Bedside drainage bag placed below level of bladder. Pt tolerated procedure well.
[2020-06-20] MEDS: ALBUTEROL MDI INHALATION 8 GM INH INH SCH ×2 (15:43→19:00)
[2020-06-20] MEDS: IPRATROPIUM BROM 0.5 MG/2.5 ML VIAL.NEB (ATROVENT) INH SCH (19:00)
--- NOTE | 2020-06-20 19:06 | NUR ---
Closing Note Endorsed bedside report to oncoming RN using SBAR approach for continuation of care.
--- NOTE | 2020-06-20 19:10 | NUR ---
Report received from day shift nurse. Pt was received lying in bed lethargic and non-verbal. Pt is on oxygen at 3L/min via Oxymizer and oxygen saturation is 99%. Levophed drip is infusing well via VÍCTOR PICC at 0.06mcg/kg/min and current BP is 96/43. G Tube Feeding of Jevity 1.2 is infusing well at 50ml/hr and HOB is elevated 45 degrees to prevent aspiration. Guo Cath to gravity drainage is draining yellowish urine. Fall, droplet isolation and safety precautions are in place.
[2020-06-20] MEDS: ACETYLCYSTEINE 10% 4 ML VIAL (RT) INH SCH (21:00)
[2020-06-20] MEDS: ATORVASTATIN 20 MG TABLET PO SCH (21:18)
[2020-06-20] MEDS: MIRTAZAPINE 15 MG TABLET GT SCH (21:19)
--- NOTE | 2020-06-20 22:30 | NUR ---
Pt is tolerating GT Feeding well. Rate increased to 60ml/hr. HOB remains elevated at 45 degrees. Levophed drip continues at 0.06mcg/kg/min. Fall, droplet isolation and safety precautions are in place.
[2020-06-21] VITALS (24 sets, daily range): BP systolic 74–144
--- NOTE | 2020-06-21 00:45 | NUR ---
B/P 114/73, P 156, R, 24, SPO2 93%. RT successfully obtains blood for ABG.
[2020-06-21] MEDS: INSULIN REGULAR, HUMAN 100 UNITS/ML, 10 ML VIAL (humuLIN R) SUBCUT PRN ×4 (00:50→17:36)
--- NOTE | 2020-06-21 00:50 | NUR ---
Accucheck 183 and 2 units Regular Insulin given SQ. Skin remains warm and dry to touch. GTF of Jevity 1.2 is infusing well at 60ml/hr.
--- NOTE | 2020-06-21 01:00 | NUR ---
Pt not tolerating vent changes r/t no improvement in SPO2. Changes made to vent settings per RT: A/C, R 24, Vt 550, FiO2 100%, PEEP 10. Dr. Hughes notified of ABG results and continuous state of hypotension of B/P 86/55. Neosynephrine Drip started at 0.5 mcg/kg/min orders of Dr. Hughes. Addendum: 06/22/20 at 1121 by Jarred Arce RN Wrong time
[2020-06-21] MEDS: PIPERACILLIN/TAZO 3.375/DEX-IS 50 ML IV SCH ×3 (05:28→17:33)
[2020-06-21 06:33] LABS: BASOPHILS % (AUTO) 0.1 % (0.0-2.0); EOSINOPHILS # (AUTO) 0.1 K/uL (0.0-0.4); EOSINOPHILS % (AUTO) 1.1 % (0.0-4.0); HEMATOCRIT 39.9 % (36-54); HEMOGLOBIN 12.7 g/dL (14.0-18.0); LYMPHOCYTES # (AUTO) 1.1 K/uL (1.0-5.5); LYMPHOCYTES % (AUTO) 11.9 % (20.5-51.5); MEAN CORPUSCULAR HEMOGLOBIN 28 pg (27-31); MEAN CORPUSCULAR HGB CONC 32 % (32-36); MEAN CORPUSCULAR VOLUME 87 fL (79.0-98.0); MONOCYTES # (AUTO) 0.9 K/uL (0.0-1.0); MONOCYTES % (AUTO) 9.7 % (1.7-9.3); NEUTROPHILS # (AUTO) 7.3 K/uL (1.8-7.7); NEUTROPHILS % (AUTO) 77.2 % (40.0-70.0); PLATELET COUNT (AUTO) 63 K/uL (130-430); RED BLOOD CELL COUNT(AUTO) 4.59 MIL/uL (4.2-6.2); RED CELL DISTRIBUTION WIDTH 21.9 % (9.0-15.0); WHITE BLOOD COUNT (AUTO) 9.5 K/uL (4.8-10.8)
[2020-06-21 06:43] LABS: ANION GAP 6 (5-15); CALCIUM 7.9 mg/dL (8.4-11.0); CHLORIDE 104 mmol/L (98-107); CREATININE 0.82 mg/dL (0.55-1.30); GLUCOSE 208 mg/dL (70-99); POTASSIUM 3.2 mmol/L (3.5-5.1); SODIUM SERUM 143 mmol/L (136-145); UREA NITROGEN, BLOOD 14 mg/dL (8-21)
[2020-06-21] MEDS: IPRATROPIUM BROM 0.5 MG/2.5 ML VIAL.NEB (ATROVENT) INH SCH ×3 (07:55→15:00)
[2020-06-21] MEDS: ALBUTEROL MDI INHALATION 8 GM INH INH SCH ×4 (07:55→19:59)
[2020-06-21] MEDS: ACETYLCYSTEINE 10% 4 ML VIAL (RT) INH SCH ×2 (07:55→15:00)
--- NOTE | 2020-06-21 08:00 | NUR ---
Initial notes Lethargic,on oximizer at 4L,o2 sat at 95%. on levophed at 0.03mcg/min. tolerating feeding. oral care and suctioning done. Repositioned. No acute distress noted.
[2020-06-21] MEDS: MULTIVITAMINS TAB 1 TABLET PO SCH (08:13)
[2020-06-21] MEDS: TAMSULOSIN HCL 0.4 MG CAP PO SCH (08:13)
[2020-06-21] MEDS: DIVALPROEX SODIUM 250 MG TABLET(DEPAKOTE) PO SCH ×3 (08:13→20:41)
[2020-06-21] MEDS: CLOPIDOGREL BISULFATE 75 MG TABLET PO SCH (08:13)
[2020-06-21] MEDS: FUROSEMIDE 20 MG TABLET PO SCH (08:13)
[2020-06-21] MEDS: METOPROLOL SUCCINATE 25 MG TAB.SR.24H (TOPROL XL) PO SCH ×2 (08:14→21:00)
[2020-06-21] MEDS: ASPIRIN 81 MG TAB.CHEW PO SCH (08:14)
[2020-06-21] MEDS: QUEtiapine FUMARATE 25 MG TABLET GT SCH ×2 (09:00→14:41)
--- NOTE | 2020-06-21 09:10 | NUR ---
RT NOTE: 09 Pt NT via both nare. Suctioned moderate thick white, blood-tinged secretions. Pt tolerated NTS fairly. RN at bedside, helped me with suctioning. Placed on 4LPM oxymizer post. Pt is tolerating well. SpO2 is at 94%. Addendum: 06/21/20 at 0958 by Brittaney Hdz RT Amended: Links added.
--- NOTE | 2020-06-21 12:00 | NUR ---
MD ROUNDS Seen by Dr. Chirinos and made aware of pottasium result.
[2020-06-21] MEDS ORDERED: CYANOCOBALAMIN 1000 mCg TABLET PO SCH (12:30)
--- NOTE | 2020-06-21 13:03 | NUR ---
Nutrition F/U Admitting Diagnosis: COVID positive/dehydration Medical History Comment: PMH: psych disorder, HTN per physician notes 06/14 MD notes: Dementia SARS-CoV-2 Rapid Positive 06/01, Positive 06/09, Positive 06/17 SARS-CoV-2 Ag (PCR) Positive 06/01 Subjective Information: Pt is in ICU ^ and RD visit was deferred d/t isolation precaution and conservation efforts on PPE's. Per EMR review, pt is S/P PEG placement on 06/18, and tube feeding has been started on 06/20. RD s/w pt's primary RN Yeimi Hill who reported that pt has been tolerating EN well, no residuals and no EN issues. RD noted elevated BG. Pt may benefit from Glucerna for better control of BG. Current Diet Order/Nutrition Support: Jevity 1.2 at 60ml/hr (goal rate), FWF 200ml Q8H via GT Provides: 1728 Kcal, 80gm protein and 1762ml fluids. Meets: 87% of lower end of estimated calorie needs and 81% of upper end of estimated protein needs. Pertinent Medications: seroquel, lasix, Lovenox, MVI, Remeron, Lipitor, haldol Pertinent Labs: 06/21 BG 208H, POC BG 185H Skin Integrity Comment: Hiram scale: 15; per Treatment Manager note 06/02: 1. Left Distal Posterior Forearm: Skin tear, present on admission. 2. Right Distal Posterior Forearm: Skin tear, present on admission. 3. Right dorsal Hand: Skin tear, present on admission. 4. Left Upper Extremity: Multiple areas of dark discolored ecchymosis, present on admission. 5. Right Forearm: Multiple dry scabs, present on admission. 6. Left barnes: Multiple dry scabs, present on admission. 7. Right barnes: Large dry scab, present on admission. 8. Left lateral hip: Large area of purple ecchymosis, present on admission. Current % PO N/A, on EN support S/P PEG placement. Estimated Energy Expenditure (kcals/day) 9313-9860 kcal/day (30-35 kcal/kg CBW for acute state) Estimated Protein Required (g/day) 79-99 gm/day (1.2-1.5 gm/kg CBW for acute state) Estimated Fluid Required (l/day) 2-2.3 L/day (1 ml/kcal/day for maintenance) Problem/Etiology/Signs/Symptoms Inadequate nutritional intakes related to metabolic demands as evidenced by inability to meet estimated nutritional requirements for acute state w/ current negligible PO intakes. *ongoing Altered nutrition related labs r/t pathophysiological factors AEB elevated BG and POC BG. (*New) Expected Outcomes/Goals - Monitor EN tolerance and intake w/ goal of pt meeting at least 80% of estimated nutritional needs, labs trending WNL, normal GI function, and skin integrity/wt maintenance Dietitian Recommendations * Recommend: Glucerna 1.2 at 70ml/hr (goal rate), FWF 200ml Q8H via GT Provides: 2016 kcal, 101gm protein and 1952ml fluids daily. Meets: 87% of upper end of estimated calorie needs and 102% of upper end of estimated protein needs. Follow Up High Risk: F/U in 2-3 days
--- NOTE | 2020-06-21 13:16 | NUR ---
Dietitian Recommendations * Recommend: Glucerna 1.2 at 70ml/hr (goal rate), FWF 200ml Q8H via GT Provides: 2016 kcal, 101gm protein and 1952ml fluids daily. Meets: 87% of upper end of estimated calorie needs and 102% of upper end of estimated protein needs. Please see Nutrition F/U note for details. FDC, RD
--- NOTE | 2020-06-21 14:01 | NUR ---
Paged Re; potassium replacement.
--- NOTE | 2020-06-21 16:00 | NUR ---
notes- asked laboratory secretary to call MD again
--- NOTE | 2020-06-21 18:46 | NUR ---
Notes- lethargic, on oximixer 5L, tolerating so far, needs suctioning. Change feeding to glucerna1.2L at 70cchr. Will endorsed
--- NOTE | 2020-06-21 19:30 | NUR ---
Vomit noted to chest area of gown. Pt tachypneic with labored breathing and gurgling sound from throat. B/P 108/53, P 127, R 34, SPO2 78%. PEG tube feedings stopped. Attempted oropharyngeal and ETT suctioning with no return of secretions. RT notified and unsuccessful nasotracheal and ETT suction attempts.
--- NOTE | 2020-06-21 20:00 | NUR ---
Levophed currently at 0.03 mcg/kg/min. B/P 89/45, P 127, R 33, SPO2 78%.
--- NOTE | 2020-06-21 20:15 | NUR ---
B/P 99/51, P 124, R 37, SPO2 86%. Levophed titrated to 0.06 mcg/kg/min.
[2020-06-21] MEDS: ATORVASTATIN 20 MG TABLET PO SCH (20:41)
--- NOTE | 2020-06-21 20:45 | NUR ---
B/P 99/45, P 122, R 40, SPO2 85%. Levophed titrated to 0.09 mcg/kg/min.
--- NOTE | 2020-06-21 21:05 | NUR ---
PAGED DR. REZA PAGER [phone]
--- NOTE | 2020-06-21 21:30 | NUR ---
Spoke with Dr. Hughes via phone to inform him of pt change in status. New orders received from Dr. Hughes to have ER intubate pt with vent settings: A/C, R 24, Vt 550, FiO2 100%, PEEP 10. RT to wean FiO2 to 60% as tolerated, keep Plateau less than 30, decrease Vt PRN. If no improvement with FiO2 at 60%, increase PEEP to 15. CXR to follow intubation and ABG 30 minutes after.
[2020-06-21] MEDS ORDERED: NOREPINEPHRINE 4 MG/4 ML VIAL IV ONE ×3 (21:42→22:13)
--- NOTE | 2020-06-21 22:00 | NUR ---
ER , Dr. Price and RT at bedside. Zofran 4 mg given IVP prior to intubation. B/P 65/39, P 123, R 28, SPO2 84%. Dr. Price states that he is unable to intubate until pressure becomes stable. Instructed to increase Levophed. Levophed increased to 0.33 mcg/kg/min.
--- NOTE | 2020-06-21 22:00 | NUR ---
Assisted Dr. Price in preparation for intubation. Pt. was successfully intubated @ 2210 with a 7.5 ETT @ 23cm Lip
--- NOTE | 2020-06-21 22:03 | NUR ---
B/P 77/47, P 128, R 34, SPO2 76%. Levophed titrated to 0.66 mcg/kg/min.
[2020-06-21] MEDS ORDERED: ONDANSETRON HCL 4 MG/2 ML VIAL ONE (22:05)
--- NOTE | 2020-06-21 22:06 | NUR ---
B/P 88/65, P 122, R 37, SPO2 84%. Levophed titrated to max of 1 mcg/kg/min per orders of Dr. Price.
--- NOTE | 2020-06-21 22:08 | NUR ---
B/P 111/57, P 144, R 41, SPO2 81%. Etomidate 20 mg and Succinylcholine 100 mg given IVP via LUE PICC per orders of Dr. Price.
--- NOTE | 2020-06-21 22:10 | NUR ---
Successful intubation with 7.5 ETT, secured at 23 cm to lip line. Pt placed on mechanical ventilator per RT: A/C, R 16, Vt 550, FiO2 100%, PEEP 5. Propofol drip started at 10 mcg/kg/min per order of Dr. Price.
[2020-06-21] MEDS ORDERED: PROPOFOL DRIP 100 ML IV ONE (22:20)
--- NOTE | 2020-06-21 22:30 | NUR ---
RT at bedside. ETT placement confirmed via CXR.
--- NOTE | 2020-06-21 22:50 | NUR ---
Unsuccessful ABG attempt per RT. Weaping of serosanguinous fluid immediately noted dripping from bandage of Right wrist at ABG puncture site. Chucks placed beneath RFA.
--- NOTE | 2020-06-21 23:31 | NUR ---
PAGED DR. NICHOLE [phone]
--- NOTE | 2020-06-21 23:40 | NUR ---
B/P 77/49, P 138, R 34, SPO2 78%. RT notified and changes made to vent settings: A/C, R 24, Vt 550, FiO2 100%, PEEP 10.
[2020-06-21] MEDS ORDERED: VASOPRESSIN 40 UNITS in NS 38 ML IV PRN (23:45)
[2020-06-21] MEDS ORDERED: NS IV PRN (23:45)
[2020-06-21] MEDS ORDERED: EPINEPHRINE AMPULE IV PRN (23:45)
[2020-06-21] MEDS ORDERED: EPINEPHrine JECT 0.1 MG/ML SYR ONE ×2 (23:45)
--- NOTE | 2020-06-21 23:46 | NUR ---
Dr. Hughes made aware of pt status and ongoing hypotension. New orders received for Epinephrine drip and Vasopressin. Epinephrine Drip started at 0.1 mcg/kg/min and Vasopressin Drip at 0.01 units/min per orders of Dr. Hughes.
[2020-06-21] MEDS ORDERED: VASOPRESSIN 20 UNITS/ML VIAL IV ONE (23:57)
[2020-06-22] VITALS (8 sets, daily range): BP systolic 81–123
[2020-06-22] MEDS ORDERED: NOREPINEPHRINE 4 MG/4 ML VIAL IV ONE ×3 (00:26→04:57)
[2020-06-22] MEDS ORDERED: NOREPINEPHRINE BITARTRATE 8 MG in NS 242 ML IV PRN (00:30)
[2020-06-22] MEDS ORDERED: HYDROCORTISONE SOD SUCC 100 MG/2 ML VIAL ONE (00:59)
[2020-06-22] MEDS ORDERED: NACL 0.9% 1,000 ML IV ONE (01:00)
[2020-06-22] MEDS ORDERED: PHENYLEPHRINE HCL 10 MG/ML VIAL (NEOSYNEPHRINE) ONE (01:00)
--- NOTE | 2020-06-22 01:00 | NUR ---
Pt not tolerating vent changes r/t no improvement in SPO2. Changes made to vent settings per RT: A/C, R 24, Vt 550, FiO2 100%, PEEP 10. Dr. Hughes notified of ABG results and continuous state of hypotension of B/P 86/55. Neosynephrine Drip started at 0.5 mcg/kg/min orders of Dr. Hughes.
[2020-06-22] MEDS ORDERED: PROPOFOL DRIP 100 ML IV ONE ×2 (03:32)
[2020-06-22] MEDS ORDERED: EPINEPHrine 1 MG/ML AMP ONE (04:55)
[2020-06-22] MEDS ORDERED: HYDROCORTISONE SOD SUCC 100 MG/2 ML VIAL IVP SCH (06:00)
[2020-06-22] MEDS: METOCLOPRAMIDE HCL 10 MG/2 ML VIAL IVP SCH ×2 (06:00)
[2020-06-22] MEDS: PIPERACILLIN/TAZO 3.375/DEX-IS 50 ML IV SCH ×2 (06:00)
--- NOTE | 2020-06-22 06:00 | NUR ---
Pt resting with eyes closed, no further changes in vent settings. Pt continues to receive sedation and pressors. No further vomiting noted, no residual. RUE continues to weep serosanguinous fluid. Tea colored U/O of 150 mL this shift. B/P 121/58, P 128, R 24, SPOP2 96%.
--- NOTE | 2020-06-22 07:15 | NUR ---
Pt report given to oncoming RN.
--- NOTE | 2020-06-22 07:20 | NUR ---
Opening Note Received plan of care via sbar from endorsing RN.
[2020-06-22] MEDS ORDERED: ATROPINE SULFATE 1 MG/10 ML SYRINGE IVP ONE (07:24)
--- NOTE | 2020-06-22 07:27 | NUR ---
Witnessed patient on monitor with bradycardia rate of 42. Went to patient's room to assess and was unable to palpate for pulse. Began code blue and compression started. Refer to code blue flow sheet.
--- NOTE | 2020-06-22 07:27 | NUR ---
RT NOTES Responded to code blue, since pt is covid positive, per AHA guidelines, pt remained on the vent. settings were changed to pc 20 r.r 10 100%. @[address] Price.
--- NOTE | 2020-06-22 07:50 | NUR ---
INFORMED MD'S PATIENT DR. JACOOB SPOKE TO [facility] [phone] DR. NEAL SPOKE TO [facility] [phone] GARCIA SPOKE TO MD DIALED [phone] DR. CHURCH SPOKE TO [facility] [phone] DR. LEAL SPOKE TO [facility] [phone] DR. TAVERAS SPOKE TO [facility] [phone]
[2020-06-22] MEDS: NOREPINEPHRINE BITARTRATE 16 MG in NS 234 ML IV PRN ×2 (07:55→08:49)
[2020-06-22] MEDS: PHENYLEPHRINE HCL 50 MG in NS 245 ML IV PRN ×2 (07:57→08:58)
[2020-06-22] MEDS ORDERED: EPINEPHrine JECT 0.1 MG/ML SYR IVP ONE (08:55)
[2020-06-22] MEDS ORDERED: FOLIC ACID 1 MG TABLET PO SCH (09:00)
== END 2020-06-22 07:45 | disposition expired | DRG 871 ==
LOC: SED 10:28 → STU 13:00 → SMU 06-05 10:34 → SIC 06-19 10:00
PROVIDERS: ADMIT Internal Medicine Hospice and Palliative Medicine; ATTEND Internal Medicine Hospice and Palliative Medicine
PROC: 0DH63UZ Insertion of Feeding Device into Stomach, Percutaneous Approach (ICD-10-PCS; 2020-06-18)
PROC: 5A1935Z Respiratory Ventilation, Less than 24 Consecutive Hours (ICD-10-PCS; principal; 2020-06-21)
DX: A41.9 Sepsis, unspecified organism (principal); U07.1 COVID-19; J12.89 Other viral pneumonia; E43 Unspecified severe protein-calorie malnutrition; J96.01 Acute respiratory failure with hypoxia; F03.91 Unspecified dementia, unspecified severity, with behavioral disturbance; J90 Pleural effusion, not elsewhere classified; I25.10 Atherosclerotic heart disease of native coronary artery without angina pectoris; K29.70 Gastritis, unspecified, without bleeding; R13.10 Dysphagia, unspecified; Z51.5 Encounter for palliative care; I10 Essential (primary) hypertension; N40.0 Benign prostatic hyperplasia without lower urinary tract symptoms; R73.9 Hyperglycemia, unspecified; E78.5 Hyperlipidemia, unspecified; F99 Mental disorder, not otherwise specified; R41.0 Disorientation, unspecified; D69.59 Other secondary thrombocytopenia; T42.6X5A Adverse effect of other antiepileptic and sedative-hypnotic drugs, initial encounter; Z86.73 Personal history of transient ischemic attack (TIA), and cerebral infarction without residual deficits; Z91.041 Radiographic dye allergy status; Z79.82 Long term (current) use of aspirin; Z79.899 Other long term (current) drug therapy; Z78.1 Physical restraint status; Z91.14 Patient's other noncompliance with medication regimen; Z91.19 Patient's noncompliance with other medical treatment and regimen; Y92.89 Other specified places as the place of occurrence of the external cause; Z68.24 Body mass index [BMI] 24.0-24.9, adult
CPT/HCPCS: 36415; 36600; 43246; 71045; 76604; 80048; 80053; 80164-TC; 81000-TC; 82140-TC; 82607; 82803-TC; 82962; 84443-TC; 85025; 85610-TC; 85730-TC; 86022; 87081; 92610-GN; 93005; 94003; 94640; 94668; 94760; 96360; 99285; G0378; J0171; J0456; J0461; J0690; J0696; J1630; J1650; J1720; J1815; J1940; J2060; J2175; J2250; J2310; J2370; J2405; J2543; J2704; J3010; J3480; J3490; J7042; J7050; J7060; U0003